=== PATIENT | male | born 1975 | race Two or more races ===

== ENCOUNTER 2017-01-24 12:34 | Emergency (ER) | payer MEDICAID, OTHER ==
[~2017-01-24] VITALS: Ht 182.9 cm; Wt 112.0 kg
[2017-01-24 12:59] LABS: Basophils # (auto) 0 uL; Basophils % (auto) 0.4 % (0.0-2.0); CONDITION Y; Eosinophils # (auto) 0.1 uL; Eosinophils % (auto) 1.3 % (0.0-7.0); Hematocrit 45.5 % (41.0-53.0); Lymphocytes # (auto) 1.6 uL; Lymphocytes % (auto) 24.3 % (10.0-50.0); Mean Corpuscular Hgb Conc. 35.1 g/dL (32.0-36.0); Mean Corpuscular Volume 94.2 fL (80.0-100.0); Mean Platelet Volume 10.3 fL (7.4-10.4); Monocytes # (auto) 0.7 uL; Monocytes % (auto) 9.8 % (0.0-12.0); Neutrophils # (auto) 4.3 uL; Neutrophils % (auto) 64.2 % (37.0-80.0); Platelet Count (auto) 147 10^3/uL (140-450); Red Cell Distribution Width 12.7 % (11.6-16.0); White Blood Cell 6.7 10^3/uL (4.4-10.8)
[2017-01-24 13:25] LABS: Alkaline Phosphatase 99 U/L (45-117); Anion Gap 7 (5-15); Aspartate Aminotransferase 17 U/L (15-37); BUN/Creatinine Ratio 15.7; Bilirubin, Total 0.4 mg/dL (0.2-1.0); Blood Urea Nitrogen 17 mg/dL (7-18); Calcium 8.5 mg/dL (8.5-10.1); Carbon Dioxide 26 mmol/L (21-32); Chloride 105 mmol/L (98-107); GFR African American 96 mL/min; GFR Non-African American 79 mL/min; Glucose 118 mg/dL (74-106); Potassium 3.7 mmol/L (3.5-5.1); Sodium 138 mmol/L (136-145); Total Protein 7.6 g/dL (6.4-8.2)
[2017-01-24] MEDS ORDERED: SODIUM CHLORIDE 0.9% 1,000 ML IV ONE (15:31)
[2017-01-24 17:14] VITALS: BP 128/65
== END 2017-01-24 17:22 | disposition home or self-care (01) ==
LOC: ER 12:39
DX: R53.1 Weakness (principal); R42 Dizziness and giddiness; R55 Syncope and collapse
CPT/HCPCS: 36415; 70450; 80053; 82962; 84484; 85025; 93005; 94761; 96360

== ENCOUNTER 2017-03-29 16:13 | Emergency (ER) | payer MEDICAID ==
[~2017-03-29] VITALS: Ht 182.9 cm; Wt 108.0 kg
[2017-03-29 16:35] VITALS: BP 142/79
== END 2017-03-29 17:46 | disposition home or self-care (01) ==
LOC: ER 16:23
DX: N50.3 Cyst of epididymis (principal); I86.1 Scrotal varices
CPT/HCPCS: 76870; 81002

== ENCOUNTER 2019-12-30 11:14 | Emergency (ER) | payer MEDICAID ==
[~2019-12-30] VITALS: Ht 182.9 cm; Wt 113.4 kg
[2019-12-30 11:15] VITALS: BP 134/80
[2019-12-30 11:46] LABS: Urine Bacteria NONE SEEN /hpf (None Seen); Urine Blood Negative /uL (Negative); Urine Specific Gravity 1.009 (1.001-1.035); Urine WBC 1 /hpf (0 - 3)
== END 2019-12-30 13:21 | disposition home or self-care (01) ==
LOC: ER 11:14
DX: N50.3 Cyst of epididymis (principal)
CPT/HCPCS: 76870; 81001

== ENCOUNTER 2021-02-01 08:53 | Emergency (ER) | payer MEDICAID ==
[~2021-02-01] VITALS: Ht 185.4 cm; Wt 113.4 kg
[2021-02-01 09:32] VITALS: BP 143/88
[2021-02-01 09:39] LABS: Urine Bacteria NONE SEEN /hpf (None Seen); Urine Blood 3+ /uL (Negative); Urine Budding Yeast OCCASIONAL /hpf (None Seen); Urine Mucus FEW (None Seen); Urine Specific Gravity 1.021 (1.001-1.035); Urine WBC 2 /hpf (0 - 3)
[2021-02-01] MEDS ORDERED: KETOROLAC TROMETH 60MG/2ML VIAL IM ONE (10:30)
== END 2021-02-01 11:13 | disposition home or self-care (01) ==
LOC: ER 08:53
DX: N20.2 Calculus of kidney with calculus of ureter (principal)
CPT/HCPCS: 74176; 81001; 96372; 99284; J1885

== ENCOUNTER 2021-08-01 10:32 | Inpatient (IN) | payer MEDICAID ==
[~2021-08-01] VITALS: Ht 182.9 cm; Wt 105.0 kg
[2021-08-01 11:45] LABS: Basophils # (auto) 0 10 ^3/uL (0-0.2); Basophils % (auto) 0.7 % (0.0-2.0); Eosinophils # (auto) 0.1 10 ^3/uL (0-0.8); Eosinophils % (auto) 1.7 % (0.0-7.0); Hematocrit 41.4 % (41.0-53.0); Hemoglobin 13.9 g/dL (13.5-17.5); Lymphocytes # (auto) 0.7 10 ^3/uL (0.4-5.4); Lymphocytes % (auto) 12.8 % (10.0-50.0); Mean Corpuscular Hemoglobin 31.3 pg (28.0-32.0); Mean Corpuscular Hgb Conc. 33.7 g/dL (32.0-36.0); Monocytes # (auto) 0.7 10 ^3/uL (0-1.3); Monocytes % (auto) 12.8 % (0.0-12.0); Neutrophils # (auto) 4.1 10 ^3/uL (1.6-8.6); Nucleated Red Blood Cells % 0.1 %; Red Blood Cells 4.45 10^6/uL (4.5-5.90); White Blood Cell 5.7 10^3/uL (4.4-10.8)
[2021-08-01 11:56] LABS: Albumin 3.1 g/dL (3.4-5.0); Calcium 8.3 mg/dL (8.5-10.1); Potassium 4.3 mmol/L (3.5-5.1)
[2021-08-01 12:02] LABS: BUN/Creatinine Ratio 12.4; Bilirubin, Total 0.5 mg/dL (0.2-1.0); Total Protein 7.4 g/dL (6.4-8.2)
[2021-08-01] MEDS ORDERED: ONDANSETRON HCL 4 MG/2 ML VIAL IV PRN (16:45)
[2021-08-01] MEDS ORDERED: ACETAMINOPHEN 325 MG TAB PO PRN (16:45)
[2021-08-01] MEDS: ALBUTEROL SULF HFA 90MCG INH 200DOSE IN SCH (22:00)
[2021-08-02] MEDS ORDERED: PROMETHAZINE-DM 5 ML ORAL SYRUP PO PRN (00:15)
[2021-08-02 05:04] VITALS: BP 118/77
[2021-08-02 08:30] VITALS: BP 103/61
[2021-08-02 09:42] LABS: Basophils # (auto) 0 10 ^3/uL (0-0.2); Basophils % (auto) 0.7 % (0.0-2.0); Eosinophils # (auto) 0.1 10 ^3/uL (0-0.8); Eosinophils % (auto) 3.1 % (0.0-7.0); Hematocrit 38.1 % (41.0-53.0); Lymphocytes # (auto) 1.1 10 ^3/uL (0.4-5.4); Mean Corpuscular Hemoglobin 31.8 pg (28.0-32.0); Mean Corpuscular Hgb Conc. 34.1 g/dL (32.0-36.0); Mean Corpuscular Volume 93.1 fL (80.0-100.0); Monocytes # (auto) 0.6 10 ^3/uL (0-1.3); Monocytes % (auto) 13.2 % (0.0-12.0); Neutrophils # (auto) 2.8 10 ^3/uL (1.6-8.6); Nucleated Red Blood Cells % 0.1 %; Red Blood Cells 4.09 10^6/uL (4.5-5.90); White Blood Cell 4.7 10^3/uL (4.4-10.8)
[2021-08-02] MEDS: CHOLECALCIFEROL (VITD3) 2,000 UNIT CAP/TAB PO SCH (09:55)
[2021-08-02] MEDS: ZINC SULFATE 220mg CAP or TAB PO SCH (09:55)
[2021-08-02] MEDS: ASCORBIC ACID 500 MG TAB PO SCH ×2 (09:55→21:40)
[2021-08-02] MEDS: DexAMETHasone SOD PHOS 10MG/1ML VIAL INJ IV SCH (09:55)
[2021-08-02 10:06] LABS: Calcium 8.3 mg/dL (8.5-10.1); Potassium 3.9 mmol/L (3.5-5.1)
[2021-08-02 10:23] LABS: BUN/Creatinine Ratio 12.6
[2021-08-02] MEDS ORDERED: REMDESIVIR PER PHARMACY 0 ML IV SCH (13:45)
[2021-08-02] MEDS ORDERED: REMDESIVIR 200 MG in NS 210ml LOADING DOSE ADULT IV ONE (16:00)
[2021-08-02 17:00] VITALS: BP 105/56
[2021-08-02] MEDS: ALBUTEROL SULF HFA 90MCG INH 200DOSE IN SCH (21:05)
[2021-08-02 21:30] VITALS: BP 105/58
[2021-08-03] VITALS (7 sets, daily range): BP systolic 91–122; BP diastolic 54–70
[2021-08-03 06:51] LABS: Basophils # (auto) 0 10 ^3/uL (0-0.2); Basophils % (auto) 0.3 % (0.0-2.0); Eosinophils # (auto) 0 10 ^3/uL (0-0.8); Eosinophils % (auto) 0.4 % (0.0-7.0); Hematocrit 38.3 % (41.0-53.0); Hemoglobin 12.9 g/dL (13.5-17.5); Lymphocytes # (auto) 1.4 10 ^3/uL (0.4-5.4); Mean Corpuscular Hemoglobin 31.6 pg (28.0-32.0); Mean Corpuscular Hgb Conc. 33.6 g/dL (32.0-36.0); Mean Corpuscular Volume 93.8 fL (80.0-100.0); Monocytes # (auto) 0.8 10 ^3/uL (0-1.3); Monocytes % (auto) 10.6 % (0.0-12.0); Neutrophils # (auto) 5.2 10 ^3/uL (1.6-8.6); Neutrophils % (auto) 69.7 % (37.0-80.0); Red Blood Cells 4.08 10^6/uL (4.5-5.90); Red Cell Distribution Width 13.1 % (11.8-14.3); White Blood Cell 7.5 10^3/uL (4.4-10.8)
[2021-08-03 07:22] LABS: Calcium 8.6 mg/dL (8.5-10.1); Potassium 3.5 mmol/L (3.5-5.1)
[2021-08-03 07:23] LABS: BUN/Creatinine Ratio 18.2
[2021-08-03] MEDS ORDERED: AZITHROMYCIN 500MG/ 250ML 250 ML IV SCH (10:00)
[2021-08-03] MEDS: ZINC SULFATE 220mg CAP or TAB PO SCH (10:28)
[2021-08-03] MEDS: DexAMETHasone SOD PHOS 10MG/1ML VIAL INJ IV SCH (10:28)
[2021-08-03] MEDS: ASCORBIC ACID 500 MG TAB PO SCH ×2 (10:28→21:27)
[2021-08-03] MEDS: CHOLECALCIFEROL (VITD3) 2,000 UNIT CAP/TAB PO SCH (10:29)
[2021-08-03] MEDS: cefTRIAXone 1GM/50ML D5W 50 ML IV SCH (11:24)
[2021-08-03] MEDS: REMDESIVIR 100mg 100 MG in SODIUM CHL 0.9% 230 ML IV SCH (17:25)
[2021-08-03] MEDS: DOXYCYCLINE 100MG/250ML 250 ML IV SCH (18:19)
[2021-08-04] VITALS (7 sets, daily range): BP systolic 95–114; BP diastolic 51–70
[2021-08-04 06:07] LABS: Basophils # (auto) 0 10 ^3/uL (0-0.2); Basophils % (auto) 0.6 % (0.0-2.0); Eosinophils # (auto) 0.1 10 ^3/uL (0-0.8); Eosinophils % (auto) 1.1 % (0.0-7.0); Hematocrit 37.8 % (41.0-53.0); Hemoglobin 12.5 g/dL (13.5-17.5); Lymphocytes # (auto) 1.6 10 ^3/uL (0.4-5.4); Lymphocytes % (auto) 22.6 % (10.0-50.0); Mean Corpuscular Hemoglobin 31.2 pg (28.0-32.0); Mean Corpuscular Hgb Conc. 33.2 g/dL (32.0-36.0); Mean Corpuscular Volume 94.1 fL (80.0-100.0); Monocytes # (auto) 0.9 10 ^3/uL (0-1.3); Monocytes % (auto) 12.1 % (0.0-12.0); Neutrophils # (auto) 4.5 10 ^3/uL (1.6-8.6); Neutrophils % (auto) 63.6 % (37.0-80.0); Nucleated Red Blood Cells % 0.2 %; Red Blood Cells 4.02 10^6/uL (4.5-5.90); Red Cell Distribution Width 13.5 % (11.8-14.3); White Blood Cell 7.1 10^3/uL (4.4-10.8)
[2021-08-04] MEDS: DOXYCYCLINE 100MG/250ML 250 ML IV SCH ×2 (06:19→17:37)
[2021-08-04 08:38] LABS: Calcium 8.5 mg/dL (8.5-10.1); Potassium 3.6 mmol/L (3.5-5.1)
[2021-08-04 08:42] LABS: BUN/Creatinine Ratio 14.6; Bilirubin, Total 0.4 mg/dL (0.2-1.0); Total Protein 6.6 g/dL (6.4-8.2)
[2021-08-04] MEDS: CHOLECALCIFEROL (VITD3) 2,000 UNIT CAP/TAB PO SCH (09:27)
[2021-08-04] MEDS: ASCORBIC ACID 500 MG TAB PO SCH ×2 (09:27→22:21)
[2021-08-04] MEDS: DexAMETHasone SOD PHOS 10MG/1ML VIAL INJ IV SCH (09:27)
[2021-08-04] MEDS: cefTRIAXone 1GM/50ML D5W 50 ML IV SCH (09:27)
[2021-08-04] MEDS: ZINC SULFATE 220mg CAP or TAB PO SCH (09:27)
[2021-08-04] MEDS ORDERED: IOHEXOL 350 MG/ML 100ML IJ ONE (12:09)
[2021-08-04] MEDS: APIXABAN 5 MG TAB PO SCH ×2 (13:30→22:21)
[2021-08-04] MEDS: REMDESIVIR 100mg 100 MG in SODIUM CHL 0.9% 230 ML IV SCH (14:11)
[2021-08-04] MEDS: ALBUTEROL SULF HFA 90MCG INH 200DOSE IN PRN (16:34)
[2021-08-04] MEDS ORDERED: APIX5TAB PO (17:51)
[2021-08-04] MEDS ORDERED: DEXA6TAB6 PO (17:51)
[2021-08-04] MEDS ORDERED: ASCO500T11 PO (17:51)
[2021-08-04] MEDS ORDERED: ZINC220C8 PO (17:51)
[2021-08-04] MEDS ORDERED: CHOL1CAP47 PO (17:51)
[2021-08-04] MEDS ORDERED: ALBUAER3 IN (17:51)
[2021-08-05 05:02] VITALS: BP 102/57
[2021-08-05] MEDS: DOXYCYCLINE 100MG/250ML 250 ML IV SCH ×2 (07:02→18:15)
[2021-08-05 08:00] VITALS: BP 117/72
[2021-08-05 08:00] LABS: Potassium 3.9 mmol/L (3.5-5.1)
[2021-08-05 08:07] LABS: Albumin 3.1 g/dL (3.4-5.0); Calcium 8.5 mg/dL (8.5-10.1)
[2021-08-05] MEDS: ALBUTEROL SULF HFA 90MCG INH 200DOSE IN PRN ×2 (08:25→21:11)
[2021-08-05 08:32] LABS: BUN/Creatinine Ratio 15.3; Bilirubin, Total 0.4 mg/dL (0.2-1.0); Total Protein 6.5 g/dL (6.4-8.2)
[2021-08-05 09:00] VITALS: BP 102/57
[2021-08-05] MEDS: cefTRIAXone 1GM/50ML D5W 50 ML IV SCH (09:59)
[2021-08-05] MEDS: DexAMETHasone SOD PHOS 10MG/1ML VIAL INJ IV SCH (10:00)
[2021-08-05] MEDS: ASCORBIC ACID 500 MG TAB PO SCH ×2 (10:01→21:57)
[2021-08-05] MEDS: ZINC SULFATE 220mg CAP or TAB PO SCH (10:01)
[2021-08-05] MEDS: APIXABAN 5 MG TAB PO SCH ×2 (10:02→21:56)
[2021-08-05] MEDS: CHOLECALCIFEROL (VITD3) 2,000 UNIT CAP/TAB PO SCH (10:02)
[2021-08-05 12:39] VITALS: BP 97/56
[2021-08-05] MEDS: REMDESIVIR 100mg 100 MG in SODIUM CHL 0.9% 230 ML IV SCH (15:36)
[2021-08-05 17:00] VITALS: BP 117/72
[2021-08-05 22:00] VITALS: BP 122/76
[2021-08-06 05:00] VITALS: BP 107/69
[2021-08-06] MEDS: DOXYCYCLINE 100MG/250ML 250 ML IV SCH (06:40)
[2021-08-06 08:07] LABS: Potassium 3.8 mmol/L (3.5-5.1)
[2021-08-06 08:15] LABS: Albumin 3.1 g/dL (3.4-5.0); BUN/Creatinine Ratio 18.9; Bilirubin, Total 0.3 mg/dL (0.2-1.0); Calcium 8.7 mg/dL (8.5-10.1); Total Protein 6.6 g/dL (6.4-8.2)
[2021-08-06 09:00] VITALS: BP 106/65
[2021-08-06] MEDS: cefTRIAXone 1GM/50ML D5W 50 ML IV SCH (09:20)
[2021-08-06] MEDS: ZINC SULFATE 220mg CAP or TAB PO SCH (09:22)
[2021-08-06] MEDS: CHOLECALCIFEROL (VITD3) 2,000 UNIT CAP/TAB PO SCH (09:22)
[2021-08-06] MEDS: ASCORBIC ACID 500 MG TAB PO SCH (09:22)
[2021-08-06] MEDS: APIXABAN 5 MG TAB PO SCH (09:22)
[2021-08-06] MEDS: DexAMETHasone SOD PHOS 10MG/1ML VIAL INJ IV SCH (09:22)
[2021-08-06] MEDS: ALBUTEROL SULF HFA 90MCG INH 200DOSE IN PRN (09:48)
[2021-08-06 13:00] VITALS: BP 103/57
[2021-08-11] MEDS ORDERED: APIXABAN 5 MG TAB PO SCH (10:00)
== END 2021-08-06 14:45 | disposition home health service (06) | DRG 137 ==
LOC: ER 10:32 → TELE 16:32 → TELE-WESTW 08-02 04:21
PROVIDERS: ADMIT Internal Medicine; ATTEND Internal Medicine
PROC: XW033E5 Introduction of Remdesivir Anti-infective into Peripheral Vein, Percutaneous Approach, New Technology Group 5 (ICD-10-PCS; principal; 2021-08-02)
DX: U07.1 COVID-19 (principal); I26.99 Other pulmonary embolism without acute cor pulmonale; J96.01 Acute respiratory failure with hypoxia; J12.82 Pneumonia due to coronavirus disease 2019; E66.01 Morbid (severe) obesity due to excess calories; F41.9 Anxiety disorder, unspecified; J98.11 Atelectasis; Z68.31 Body mass index [BMI] 31.0-31.9, adult; Z83.3 Family history of diabetes mellitus; Z79.01 Long term (current) use of anticoagulants; Z80.0 Family history of malignant neoplasm of digestive organs; Z82.5 Family history of asthma and other chronic lower respiratory diseases
CPT/HCPCS: 36415; 36600; 71045; 71275; 80048; 80053; 82805; 83880; 84484; 85025; 85379; 86141; 87426; 93970; 94640; 99291; G0378; J0696; J1100; J3490

== ENCOUNTER 2024-07-21 10:18 | Inpatient (IN) | payer MEDICAID ==
[~2024-07-21] VITALS: Ht 182.9 cm; Wt 97.7 kg
[2024-07-21] VITALS (8 sets, daily range): BP systolic 109–124; BP diastolic 67–83; PULSE 90–107; RESP 18–20; TEMP 97.9–98.5; O2SAT 93–98
[~2024-07-21 10:18] MED LIST: ALBUAER3 IN; APIX5TAB PO; ASCO500T11 PO; CHOL1CAP47 PO; DEXA6TAB6 PO; ZINC220C8 PO
--- NOTE | 2024-07-21 10:28 | ED.PDOC ---
SOB-HPI HPI Comments 49 y/o M brought in by ambulance presents to the ED with CC of cough. Per EMS, patient has been experiencing episodes of hemoptysis x2days; with associated symptoms of weakness and dizziness. Patient states, that he was seen at urgent care one week ago for flu-like symptoms where he received albuterol and antibiotics. Patient relays, that medications did help in the beginning; now symptoms have worsened. Patient was stating at 91% room air; received a breathing treatment in route to ED stating at 96%. Patient denies any social history. Patient denies chest pain, fever, shortness of breath, or N/V/D. Time Seen by MD: 10:20 Primary Care Provider: ALIDA Dudley notes: Nurses Notes, Editorial Director Notes, Medications, Allergies Information Source: Patient, Emergency Med Personnel Mode of Arrival: EMS Severity: Moderate Timing: Days Duration: Since onset Context: At Rest PE Risk Factors: Other (COVID) History of: None Prehospital treatment: Breathing Tx Modifying Factors: Nothing Associated Signs and Symptoms: None If cough with SOB: Bloody Past Medical History PAST MEDICAL HISTORY: Anxiety, PE Surgical History: Denies all surgeries Family History Family History: Reviewed,noncontributory to illness Social History Smoker: Non-Smoker Alcohol: Rarely Drugs: Denies Drug Use Lives In: Home Constitutional: denies: chills, diaphoresis, fatigue, fever, malaise, sweats, weakness, others EENTM: denies: blurred vision, double vision, ear bleeding, ear discharge, ear drainage, ear pain, ear ringing, eye pain, eye redness, hearing loss, mouth pain, mouth swelling, nasal discharge, nose bleeding, nose congestion, nose pain, photophobia, tearing, throat pain, throat swelling, voice changes, others Respiratory: reports: cough; denies: hemoptysis, orthopnea, SOB at rest, shortness of breath, SOB with excertion, stridor, wheezing, others Cardiovascular: denies: chest pain, dizzy spells, diaphoresis, Dyspnea on exertion, edema, irregular heart beat, left arm pain, lightheadedness, palpitations, PND, syncope, others Gastrointestinal: denies: abdomen distended, abdominal pain, blood streaked bowels, constipated, diarrhea, dysphagia, difficulty swallowing, hematemesis, melena, nausea, poor appetite, poor fluid intake, rectal bleeding, rectal pain, vomiting, others Genitourinary: denies: burning, dysuria, flank pain, frequency, hematuria, incontinence, penile discharge, penile sore, pain, testicle pain, testicle swelling, urgency, others Neurological: reports: dizziness; denies: fainting, headache, left sided numbness, left sided weakness, numbness, paresthesia, pre-existing deficit, right sided numbness, right sided weakness, seizure, speech problems, tingling, tremors, weakness, others Musculoskeletal: denies: back pain, gout, joint pain, joint swelling, muscle pain, muscle stiffness, neck pain, others Integumetry: denies: bruises, change in color, change in hair/nails, dryness, laceration, lesions, lumps, rash, wounds, others Allergic/Immunocompromised: denies: Difficulty Healing, Frequent Infections, Hives, Itching, others Hematologic/Lymphatic: denies: anemia, blood clots, easy bleeding, easy br uising, swollen glands, others Endocrine: denies: excessive hunger, excessive sweating, excessive thirst, excessive urination, flushing, intolerance to cold, intolerance to heat, unexplained weight gain, unexplained weight loss, others Psychiatric: denies: anxiety, bipolar disorder, depression, hopeless, panic disorder, schizophrenia, sleepless, suicidal, others All Other Systems: Reviewed and Negative Physical Exam General Appearance: Moderate Distress HEENT: Normal ENT Inspection, Pharynx Normal, TMs Normal Neck: Full Range of Motion, Non-Tender, Normal, Normal Inspection Respiratory: Chest Non-Tender, No Accessory Muscle Use, Respiratory Distress, Wheezing Cardiovascular: No Edema, No JVD, No Murmur, No Gallop, Tachycardia Breast Exam: Deferred Gastrointestinal: No Organomegaly, Non Tender, No Pulsatile Mass, Normal Bowel Sounds, Soft Genitalia: Deferred Pelvic: Deferred Rectal: Deferred Extremities: No calf tenderness, Normal capillary refill, Normal inspection, Normal range of motion, Non-tender, No pedal edema Musculoskeletal : Apperance: Normal Neurologic: Alert, senior materials planner II-XII nml as Tested, No Motor Deficits, Normal Affect, Normal Mood, No Sensory Deficits Cerebellar Function: Normal Reflexes: Normal Skin: Dry, Normal Color, Warm Lymphatic: No Adenopathy EKG EKG : Pulse Rate (adult): 106 [place]: Normal Cardiac Rhythm: ST Block: None Hypertrophy: None ST: Normal Was a procedure done? Was a procedure done?: No Differential Dx Differential Diagnosis: Bronchitis, COPD, Pneumonia, Pharyngitis, URI X-Ray, Labs, Meds, VS Vital Signs Date Time Temp Pulse Resp B/P (MAP) Pulse Ox O2 Delivery O2 Flow Rate FiO2 07/21/24 10:45 98.8 103 19 121/77 (92) 95 98.8 07/21/24 10:45 103 19 95 Nasal Cannula* 2 28 07/21/24 10:44 96 Nasal Cannula* 2 28 07/21/24 10:28 106 07/21/24 10:22 106 07/21/24 10:18 Nasal Cannula* 2 28 07/21/24 10:18 Nasal Cannula* 2 28 07/21/24 10:18 98.7 102 20 147/79 (101) 94 Lab Test 07/21/24 11:48 07/21/24 10:55 07/21/24 10:47 07/21/24 10:44 Range/Units Troponin I High Sensitivity 3 L 3 L </=54 ng/L Urine Color Light-yellow Yellow Urine Clarity Clear Clear Urine pH 6.0 5.0-9.0 Urine Specific [place] 1.010 1.001-1.035 Urine Protein Negative Negative Urine Ketones Negative Negative Urine Blood Negative Negative /uL Urine Nitrite Negative Negative Urine Bilirubin Negative Negative Urine Urobilinogen Normal Negative mg/dL Urine Leukocyte Esterase Negative Negative /uL Urine RBC <1 0 - 3 /hpf Urine Microscopic WBC 1 0-3 /HPF Urine Squamous Epithelial Cells None seen <5 /hpf Urine Bacteria None seen None Seen /hpf Urine Glucose Normal Normal mg/dL White Blood Count 9.5 4.4-10.8 10^3/uL Red Blood Count 4.81 4.5-5.90 10^6/uL Hemoglobin 15.5 13.5-17.5 g/dL Hematocrit 45.6 41.0-53.0 % Mean Corpuscular Volume 94.9 80.0-100.0 fL Mean Corpuscular Hemoglobin 32.3 H 28.0-32.0 pg Mean Corpuscular Hemoglobin Concent 34.0 32.0-36.0 g/dL Red Cell Distribution Width 13.5 11.8-14.3 % Platelet Count 158 140-450 10^3/uL Mean Platelet Volume 9.6 6.9-10.8 fL Neutrophils (%) (Auto) 68.5 37.0-80.0 % Lymphocytes (%) (Auto) 11.8 10.0-50.0 % Monocytes (%) (Auto) 14.0 H 0.0-12.0 % Eosinophils (%) (Auto) 4.9 0.0-7.0 % Basophils (%) (Auto) 0.8 0.0-2.0 % Neutrophils # (Auto) 6.5 1.6-8.6 10 ^3/uL Lymphocytes # (Auto) 1.1 0.4-5.4 10 ^3/uL Monocytes # (Auto) 1.3 0-1.3 10 ^3/uL Eosinophils # (Auto) 0.5 0-0.8 10 ^3/uL Basophils # (Auto) 0.1 0-0.2 10 ^3/uL Nucleated Red Blood Cells 0.1 % D-Dimer, Quantitative 0.44 0.0-0.49 mg/L FEU Sodium Level 139 136-145 mmol/L Potassium Level 4.0 3.5-5.1 mmol/L Chloride Level 105 98-107 mmol/L Carbon Dioxide Level 26 20-31 mmol/L Anion Gap 8 5-15 Blood Urea Nitrogen 12 9-23 mg/dL Creatinine 0.98 0.700-1.30 mg/dL Glomerular Filtration Rate Calc 93 >90 mL/min BUN/Creatinine Ratio 12.2 10.0-20.0 Serum Glucose 100 74-106 mg/dL Lactic Acid Level 1.3 0.4-2.0 mmol/L Calcium Level 9.0 8.7-10.4 mg/dL B-Type Natriuretic Peptide 3.45 0-100 pg/mL Influenza Type A Antigen Negative Negative Influenza Type B Antigen Negative Negative SARS-CoV-2 Antigen (Rapid) Negative NEGATIVE Current Medications Medications (Trade) Dose Ordered Sig/Deuce Route Start Time Stop Time Status Last Admin Methylprednisolone Sodium Succinate (Solu Medrol) 125 mg ONCE ONCE IV 07/21/24 10:30 07/21/24 10:31 DC 07/21/24 10:39 Ipratropium [place] (Atrovent Medneb) 1 mg ONCE ONCE HHN 07/21/24 10:30 07/21/24 10:31 DC 07/21/24 10:43 Albuterol (Ventolin Medneb) 10 mg ONCE ONCE HHN 07/21/24 10:30 07/21/24 10:31 DC 07/21/24 10:43 CXR: FINDINGS: Lines and Tubes: None Lungs: No focal consolidation. Pleura: No effusion. No pneumothorax. Cardiomediastinal contours: Unremarkable Bones: No acute osseous abnormality. IMPRESSION: No acute cardiopulmonary disease. ATED BY: KHUSHI DIAZ MD DICTATED DATE/TIME: 07/21/241213 SIGNED BY: KHUSHI DIAZ MD SIGNED DATE/TIME: 07/21/241213 CC: At this time, the patient was given a breathing treatment of albuterol and Atrovent. The patient was also given Solu-Medrol 125 mg IV push The CBC and chemistry panel are within normal limits. The influenza a and influenza B are negative The COVID test is negative The urine test is also negative The troponin level x2 is negative The patient was being admitted to the hospitalist. The patient consistently is having shortness for breath and wheezing. We will continue to monitor the patient's condition Images Reviewed?: Images reviewed and evaluated by me Time of 1ST Reevaluation: 10:50 Reevaluation 1ST: Unchanged Patient Education/Counseling: Diagnosis, Treatment, Prognosis Family Education/Counseling: No Family Present Departure 1 Departure Time of Disposition: 13:57 Impression: Primary Impression: Hemoptysis Additional Impression: Acute respiratory failure Qualified Codes: J96.00 - Acute respiratory failure, unspecified whether with hypoxia or hypercapnia Disposition: ADMITTED INPATIENT Admit to: [facility] Condition: Fair Critical Care Note Critical Care Time?: Yes (45 min-critical care time only) Stability Stability form required: Yes Unstable for transfer: Telemetry monitoring (Telemetry monitoring required), ED Physician Assesment (Clinical assesment) Heart Score Heart Score: Heart Score Response (Comments) Value History N/A 0 EKG N/A 0 Age N/A 0 Risk Factors N/A 0 Troponin N/A 0 Total 0 I personally scribed for ANGELINA LAYNE MD ([email or web address]) on 07/21/24 at 10:28. Electronically submitted by Michelle Cohen ([email or web address]). I personally scribed for ANGELINA LAYNE MD ([email or web address]) on 07/21/24 at 12:26. Electronically submitted by Michelle Cohen ([email or web address]). ANGELINA LAYNE MD Jul 21, 2024 10:28
[2024-07-21] MEDS: methylPREDNISolone SOD SUCC 125 MG/2 ML VL IV ONE (10:39)
[2024-07-21] MEDS: ALBUTEROL SULF 2.5 MG/0.5ML(0.5%) NEB SOLN HHN ONE (10:43)
[2024-07-21] MEDS: IPRATROPIUM BROM 0.5 MG/2.5ML INH SOL HHN ONE (10:43)
[2024-07-21 11:19] LABS: Basophils # (auto) 0.1 10 ^3/uL (0-0.2); Basophils % (auto) 0.8 % (0.0-2.0); Eosinophils # (auto) 0.5 10 ^3/uL (0-0.8); Eosinophils % (auto) 4.9 % (0.0-7.0); Hematocrit 45.6 % (41.0-53.0); Hemoglobin 15.5 g/dL (13.5-17.5); Lymphocytes # (auto) 1.1 10 ^3/uL (0.4-5.4); Lymphocytes % (auto) 11.8 % (10.0-50.0); Mean Corpuscular Hemoglobin 32.3 pg (28.0-32.0); Mean Corpuscular Volume 94.9 fL (80.0-100.0); Monocytes # (auto) 1.3 10 ^3/uL (0-1.3); Neutrophils # (auto) 6.5 10 ^3/uL (1.6-8.6); Neutrophils % (auto) 68.5 % (37.0-80.0); Nucleated Red Blood Cells % 0.1 %; Platelet Count (auto) 158 10^3/uL (140-450); Red Blood Cells 4.81 10^6/uL (4.5-5.90); Red Cell Distribution Width 13.5 % (11.8-14.3); White Blood Cell 9.5 10^3/uL (4.4-10.8)
[2024-07-21 11:24] LABS: Chloride 105 mmol/L (98-107); Sodium 139 mmol/L (136-145)
[2024-07-21 11:25] LABS: Anion Gap 8 (5-15); Carbon Dioxide 26 mmol/L (20-31)
[2024-07-21 11:30] LABS: BUN/Creatinine Ratio 12.2 (10.0-20.0); Blood Urea Nitrogen 12 mg/dL (9-23); Glucose 100 mg/dL (74-106)
[2024-07-21 11:39] LABS: COVID19 ANTIGEN SOFIA FIA NEGATIVE (NEGATIVE)
[2024-07-21 11:40] LABS: Rapid Influenza A Negative (Negative); Rapid Influenza B Negative (Negative)
--- NOTE | 2024-07-21 12:14 | DVH ---
EXAM: XY CHEST PORTABLE Indication: sob Technique: Single frontal view of the chest was obtained Comparison: CHEST PORTABLE on DOS: 08/01/21 FINDINGS: Lines and Tubes: None Lungs: No focal consolidation. Pleura: No effusion. No pneumothorax. Cardiomediastinal contours: Unremarkable Bones: No acute osseous abnormality. IMPRESSION: No acute cardiopulmonary disease.
[2024-07-21 12:18] LABS: Urine Bacteria None Seen /hpf (None Seen)
[2024-07-21 12:31] LABS: Urine Blood Negative /uL (Negative); Urine Clarity Clear (Clear); Urine Color Light-Yellow (Yellow); Urine Protein, UAD Negative (Negative); Urine Squamous Epithelial Cell None Seen /hpf (<5); Urine Urobilinogen Normal (Negative); Urine WBC 1 /HPF (0-3)
[2024-07-21] MEDS ORDERED: ACETAMINOPHEN 325 MG TAB PO PRN (17:00)
[2024-07-21] MEDS ORDERED: HYDROcodone-ACET 5/325MG TAB PO PRN (17:00)
[2024-07-21] MEDS ORDERED: IPRATROPIUM BROM 0.5 MG/2.5ML INH SOL NEB PRN (17:00)
[2024-07-21] MEDS ORDERED: ONDANSETRON HCL 4 MG/2 ML VIAL IV PRN (17:00)
[2024-07-21] MEDS ORDERED: ALBUTEROL SULF 2.5 MG/0.5ML(0.5%) NEB SOLN NEB PRN (17:00)
--- NOTE | 2024-07-21 17:10 | DVHHP2 ---
History of Present Illness Reason for Visit: Cough, hemoptysis, weakness, and dizziness History of Present Illness Kumar Breaux is a 49-year-old male with past medical history of anxiety, PE, and COVID who presents to the ED with cough, weakness, dizziness, and hemoptysis x2 days. Patient reports that he had the flu about a month ago and still has a lingering cough. He states that he went to the urgent care recently was given oral antibiotics and steroids with no relief. Patient is unsure what allergies he has. He does have a cat and dog at home. Patient denies any chest pain, shortness of breath, abdominal pain, nausea, vomiting, diarrhea, fever, chills, and headache. Pulmonary: Other (Covid), Pulmonary embolus Psych: Anxiety Past Surgical History: None Family History: Cancer, DM, Other (Brother with asthma, mom with diabetes, grandma with stomach cancer) Smoke: No ALCOHOL: none (Quit drinking) Drugs: Other (Quit marijuana) Lives: with Family Domestic Violence: Neg Review of Systems Constitutional: Yes: Weakness, Other (Dizziness); No: Fever, Chills, Sweats, Malaise Eyes: No: Pain, Vision change, Conjunctivae inflammation, Eyelid inflammation, Other, Redness ENT: No: Ear pain, Ear discharge, Nose pain, Nose discharge, Nose congestion, Mouth pain, Mouth swelling, Throat pain, Throat swelling, Other Respiratory: Cough, Hemoptysis; No: Dry, Shortness of breath, SOB with excertion, Wheezing, Pleuritic Pain, Sputum, Wheezing, Other Cardiovascular: No: Chest Pain, Palpitations, Orthopnea, Paroxysmal Noc. Dyspnea, Edema, Lt Headedness, Other Gastrointestinal: No: Nausea, Vomiting, Abdominal Pain, Diarrhea, Constipation, Melena, Hematochezia, Other Genitourinary: No Dysuria, No Frequency, No Incontinence, No Hematuria, No Retention, No Other Musculoskeletal: No: other, neck pain, shoulder pain, arm pain, back pain, hand pain, leg pain, foot pain Skin: No: Rash, Lesions, Jaundice, Bruising, Other Neurological: No: Weakness, Numbness, Incoordination, Change in speech, Confusi on, Seizures, Other Allergies: Coded Allergies: Remdesivir (Verified Allergy, Mild, 07/21/24) rash Exam Vital Signs Vital Signs Date Time Temp Pulse Resp B/P (MAP) Pulse Ox O2 Delivery O2 Flow Rate FiO2 07/21/24 16:08 98.5 93 18 124/83 (97) 95 98.5 07/21/24 10:45 Nasal Cannula* 2 28 General Appearance: Alert, Oriented X3, Cooperative, mild distress HEENT: Atraumatic, PERRLA, EOMI, Mucous membr. moist/pink Respiratory: Normal air movement Cardiovascular: Normal S1, Normal S2, No murmurs Abdominal: Normal bowel sounds, Soft, No tenderness, No hepatospenomegaly, No masses Extremities: No clubbing, No cyanosis, No edema, Normal pulses, No tenderne ss/swelling Skin: No rashes, No breakdown, No significant lesion Neuro: Normal gait, Normal speech, Strength at 5/5 X4 ext, Normal tone, Sensation intact Psych/Mental Status: Mental status NL, Mood NL Labs/Xrays Labs Test 07/21/24 11:48 07/21/24 10:55 07/21/24 10:47 07/21/24 10:44 Range/Units Troponin I High Sensitivity 3 L </=54 ng/L Urine Color Light-yellow Yellow Urine Clarity Clear Clear Urine pH 6.0 5.0-9.0 Urine Specific [place] 1.010 1.001-1.035 Urine Protein Negative Negative Urine Ketones Negative Negative Urine Blood Negative Negative /uL Urine Nitrite Negative Negative Urine Bilirubin Negative Negative Urine Urobilinogen Normal Negative mg/dL Urine Leukocyte Esterase Negative Negative /uL Urine RBC <1 0 - 3 /hpf Urine Microscopic WBC 1 0-3 /HPF Urine Squamous Epithelial Cells None seen <5 /hpf Urine Bacteria None seen None Seen /hpf Urine Glucose Normal Normal mg/dL White Blood Count 9.5 4.4-10.8 10^3/uL Red Blood Count 4.81 4.5-5.90 10^6/uL Hemoglobin 15.5 13.5-17.5 g/dL Hematocrit 45.6 41.0-53.0 % Mean Corpuscular Volume 94.9 80.0-100.0 fL Mean Corpuscular Hemoglobin 32.3 H 28.0-32.0 pg Mean Corpuscular Hemoglobin Concent 34.0 32.0-36.0 g/dL Red Cell Distribution Width 13.5 11.8-14.3 % Platelet Count 158 140-450 10^3/uL Mean Platelet Volume 9.6 6.9-10.8 fL Neutrophils (%) (Auto) 68.5 37.0-80.0 % Lymphocytes (%) (Auto) 11.8 10.0-50.0 % Monocytes (%) (Auto) 14.0 H 0.0-12.0 % Eosinophils (%) (Auto) 4.9 0.0-7.0 % Basophils (%) (Auto) 0.8 0.0-2.0 % Neutrophils # (Auto) 6.5 1.6-8.6 10 ^3/uL Lymphocytes # (Auto) 1.1 0.4-5.4 10 ^3/uL Monocytes # (Auto) 1.3 0-1.3 10 ^3/uL Eosinophils # (Auto) 0.5 0-0.8 10 ^3/uL Basophils # (Auto) 0.1 0-0.2 10 ^3/uL Nucleated Red Blood Cells 0.1 % D-Dimer, Quantitative 0.44 0.0-0.49 mg/L FEU Sodium Level 139 136-145 mmol/L Potassium Level 4.0 3.5-5.1 mmol/L Chloride Level 105 98-107 mmol/L Carbon Dioxide Level 26 20-31 mmol/L Anion Gap 8 5-15 Blood Urea Nitrogen 12 9-23 mg/dL Creatinine 0.98 0.700-1.30 mg/dL Glomerular Filtration Rate Calc 93 >90 mL/min BUN/Creatinine Ratio 12.2 10.0-20.0 Serum Glucose 100 74-106 mg/dL Lactic Acid Level 1.3 0.4-2.0 mmol/L Calcium Level 9.0 8.7-10.4 mg/dL B-Type Natriuretic Peptide 3.45 0-100 pg/mL Influenza Type A Antigen Negative Negative Influenza Type B Antigen Negative Negative SARS-CoV-2 Antigen (Rapid) Negative NEGATIVE EXAM: XY CHEST PORTABLE Indication: sob Technique: Single frontal view of the chest was obtained Comparison: CHEST PORTABLE on DOS: 08/01/21 FINDINGS: Lines and Tubes: None Lungs: No focal consolidation. Pleura: No effusion. No pneumothorax. Cardiomediastinal contours: Unremarkable Bones: No acute osseous abnormality. IMPRESSION: No acute cardiopulmonary disease. Assessment/Plan Assessment/Plan Assessment/Plan: Hemoptysis Flu negative COVID Respiratory treatments IV steroids EKG Troponin negative x2 Lactic Blood cultures Chest x-ray negative UA negative BNP D-dimer IV antibiotics ceftriaxone plus azithromycin Labs A.m. labs Chronic anxiety Follow up outpatient History of PE Lovenox FEN/PPX Diet Hep-Lock DVT ppx - Lovenox PUD prophylaxis -famotidine given with steroid Discussed plan of care with patient and nurse Home medications reconciled Admit to med surge Plan discussed with: Patient My Orders Orders - GRAY WOOD Procedure Category Date Status Time Albuterol Medneb PHA 07/21/24 Verified (Ventolin Medneb) 18:00 Albuterol Medneb PHA 07/21/24 Verified (Ventolin Medneb) 17:00 Ipratropium Medneb PHA 07/21/24 Verified (Atrovent Medneb) 18:00 Ipratropium Medneb PHA 07/21/24 Verified (Atrovent Medneb) 17:00 Methylprednisolone PHA 07/21/24 Verified Sod Succ (Solu Medrol 22:00 Famotidine Injection PHA 07/22/24 Verified (Pepcid Injection) 10:00 Date of Service: Jul 21, 2024 Billing Provider: GRAY WOOD Common Visit Codes: [id number] INP/OBS CARE (HIGH) GRAY WOOD Jul 21, 2024 17:09
[2024-07-21] MEDS ORDERED: diphenhdrAMINE HCL 50 MG/1 ML VL IV PRN (17:15)
[2024-07-21] MEDS: IPRATROPIUM BROM 0.5 MG/2.5ML INH SOL NEB SCH (18:50)
[2024-07-21] MEDS: ALBUTEROL SULF 2.5 MG/0.5ML(0.5%) NEB SOLN NEB SCH (18:50)
[2024-07-21] MEDS: cefTRIAXone 1GM/50ML D5W 50 ML IV ONE (18:54)
[2024-07-21] MEDS: AZITHROMYCIN 500MG/ 250ML 250 ML IV ONE (18:54)
[2024-07-21] MEDS: methylPREDNISolone SOD SUCC 40 MG/ML VL IV SCH (21:24)
[2024-07-22] VITALS (11 sets, daily range): BP systolic 102–146; BP diastolic 58–82; PULSE 82–110; RESP 16–22; TEMP 97.8–98.1; O2SAT 91–99
[2024-07-22 06:21] LABS: Basophils # (auto) 0 10 ^3/uL (0-0.2); Basophils % (auto) 0.1 % (0.0-2.0); Eosinophils # (auto) 0 10 ^3/uL (0-0.8); Hematocrit 43.7 % (41.0-53.0); Lymphocytes # (auto) 0.6 10 ^3/uL (0.4-5.4); Mean Corpuscular Hemoglobin 32.3 pg (28.0-32.0); Mean Corpuscular Hgb Conc. 34.3 g/dL (32.0-36.0); Monocytes # (auto) 0.5 10 ^3/uL (0-1.3); Monocytes % (auto) 5.2 % (0.0-12.0); Neutrophils # (auto) 8.9 10 ^3/uL (1.6-8.6); Neutrophils % (auto) 88.7 % (37.0-80.0); Platelet Count (auto) 170 10^3/uL (140-450); Red Blood Cells 4.65 10^6/uL (4.5-5.90); Red Cell Distribution Width 13.4 % (11.8-14.3)
[2024-07-22 06:36] LABS: Alanine Aminotransferase 33 U/L (7-40); Albumin 4.2 g/dL (3.2-4.8); Alkaline Phosphatase 89 U/L (46-116); Anion Gap 5 (5-15); Aspartate Aminotransferase 25 U/L (13-40); BUN/Creatinine Ratio 13.6 (10.0-20.0); Blood Urea Nitrogen 14 mg/dL (9-23); Calcium 9.4 mg/dL (8.7-10.4); Carbon Dioxide 28 mmol/L (20-31); Chloride 105 mmol/L (98-107); Potassium 4.3 mmol/L (3.5-5.1); Sodium 138 mmol/L (136-145)
[2024-07-22 06:37] LABS: Bilirubin, Total 0.4 mg/dL (0.2-1.0)
[2024-07-22 06:42] LABS: Glucose 132 mg/dL (74-106)
--- NOTE | 2024-07-22 08:54 | ECG ---
[facility] Test Date: 2024-07-21 Test Time: 10:22:08 Pat Name: MAXIME JACKSON Department: ER Room: 0214 Gender: M Electrician Research: TJ : 1975 Requested By: ANGELINA LAYNE Order Number: [id number] Reading MD: Christ Li Measurements Intervals [place] Rate: 106 P: 54 OR: 140 QRS: 36 QRSD: 92 T: 30 QT: 347 QTc: 461 Interpretive Statements Sinus tachycardia Artifact in lead(s) II,III,aVR,aVL,aVF,V1,V5,V6 Electronically Signed On 07-23-2024 16:36:39 PST by Christ Li Please click the below link to view image of tracing.
[2024-07-22] MEDS: cefTRIAXone 1GM/50ML D5W 50 ML IV SCH (09:15)
[2024-07-22] MEDS: AZITHROMYCIN 500MG/ 250ML 250 ML IV SCH (09:16)
[2024-07-22] MEDS: FAMOTIDINE (10MG/ML) 2ML VL IV SCH (09:16)
[2024-07-22] MEDS: ENOXAPARIN SOD 30 MG/0.3 ML SYRINGE SC SCH (09:17)
[2024-07-22] MEDS ORDERED: VANCOMYCIN PER PHARMACY 0 MG IV SCH (13:30)
--- NOTE | 2024-07-22 13:52 | DVHPN2 ---
Subjective Had a flu recently and since then has been coughing then for the last 2 days he was having these with some blood in the sputum Changes from previous H/P or p: Changes Eyes: No Pain, No Vision change, No Conjunctivae inflammation, No Eyelid inflammation, No Other, No Redness ENT: No Ear pain, No Ear discharge, No Nose pain, No Nose discharge, No Nose congestion, No Mouth pain, No Mouth swelling, No Throat pain, No Throat swelling, No Other Cardiovascular: No Chest Pain, No Palpitations, No Orthopnea, No Paroxysmal Noc. Dyspnea, No Edema, No Lt Headedness, No Other Respiratory: Cough; No Dry, No Shortness of breath, No SOB with excertion, No Wheezing; Hemoptysis; No Pleuritic Pain, No Sputum, No Other Gastrointestinal: No Nausea, No Vomiting, No Abdominal Pain, No Diarrhea, No Constipation, No Melena, No Hematochezia, No Other Genitourinary: No Dysuria, No Frequency, No Incontinence, No Hematuria, No Retention, No Other Musculoskeletal: No other, No neck pain, No shoulder pain, No arm pain, No back pain, No hand pain, No leg pain, No foot pain Skin: No Rash, No Lesions, No Jaundice, No Bruising, No Other Objective Vitals Vital Signs Date Time Temp Pulse Resp B/P (MAP) Pulse Ox O2 Delivery O2 Flow Rate FiO2 07/22/24 12:05 97.8 102 16 102/58 (73) 95 97.8 07/22/24 10:23 2.0 07/22/24 10:23 Nasal Cannula* 28 Intake/Output Intake and Output 07/22/24 07:00 Intake Total 1040 ml Output Total 3 ml Balance 1037 ml Intake Oral 840 ml IV Total 200 ml Output Urine Total 3 ml # Bowel Movements 1 General Appearance: Alert, Oriented X3, Cooperative, mild distress Lungs: Clear to auscultation, Normal air movement Cardiovascular: Regular rate, Normal S1, Normal S2 Abdomen: Normal bowel sounds, Soft, No tenderness Extremities: No edema Medications Current Medications Medications Dose Ordered Sig/Deuce Route Start Time Stop Time Status Last Admin Dose Admin Albuterol 2.5 mg Q4HWA NEB 07/21/24 18:00 07/22/24 10:23 2.5 MG Albuterol 2.5 mg Q2HPRN PRN NEB 07/21/24 17:00 Ipratropium [place] 0.5 mg Q4HWA NEB 07/21/24 18:00 07/22/24 10:23 0.5 MG Ipratropium [place] 0.5 mg Q2HPRN PRN NEB 07/21/24 17:00 Methylprednisolone Sodium Succinate 40 mg Q8HR IV 07/21/24 22:00 07/22/24 12:58 40 MG Famotidine 20 mg DAILY IV 07/22/24 10:00 07/22/24 09:16 20 MG Ceftriaxone Sodium 50 ml @ 100 mls/hr DAILY@09 IV 07/22/24 09:00 07/22/24 09:15 100 MLS/HR Azithromycin 250 ml @ 125 mls/hr DAILY IV 07/22/24 10:00 07/22/24 09:16 125 MLS/HR Acetaminophen/ Hydrocodone Bitart 1 tab Q4HP PRN PO 07/21/24 17:00 Ondansetron HCl 4 mg Q4HP PRN IV 07/21/24 17:00 Acetaminophen 650 mg Q6HP PRN PO 07/21/24 17:00 Diphenhydramine HCl 25 mg Q4HP PRN IV 07/21/24 17:15 Enoxaparin Sodium 30 mg DAILY SC 07/22/24 10:00 07/22/24 09:17 30 MG Vancomycin HCl 0 ml @ 0 mls/hr UD IV 07/22/24 13:30 UNV Laboratory Results Laboratory Tests 07/22/24 05:43 Chemistry Test 07/22/24 05:43 Albumin 4.2 g/dL (3.2-4.8) Calcium Level 9.4 mg/dL (8.7-10.4) Total Protein 7.0 g/dL (5.7-8.2) LFT Test 07/22/24 05:43 Alanine Aminotransferase (ALT) 33 U/L (7-40) Alkaline Phosphatase 89 U/L (46-116) Aspartate Amino Transferase (AST) 25 U/L (13-40) Total Bilirubin 0.4 mg/dL (0.2-1.0) Urinalysis Test 07/21/24 10:55 Urine Color Light-yellow (Yellow) Urine Clarity Clear (Clear) Urine pH 6.0 (5.0-9.0) Urine Specific [place] 1.010 (1.001-1.035) Urine Protein Negative (Negative) Urine Ketones Negative (Negative) Urine Blood Negative /uL (Negative) Urine Nitrite Negative (Negative) Urine Bilirubin Negative (Negative) Urine Urobilinogen Normal mg/dL (Negative) Urine Leukocyte Esterase Negative /uL (Negative) Urine RBC <1 /hpf (0 - 3) Urine Microscopic WBC 1 /HPF (0-3) Urine Squamous Epithelial Cells None seen /hpf (<5) Urine Bacteria None seen /hpf (None Seen) Urine Glucose Normal mg/dL (Normal) Microbiology Microbiology Date/Time Source Procedure Growth Status 07/21/24 10:47 Blood Blood Culture - Preliminary Resulted Assessment/Plan Assessment/Plan Acute upper respiratory infection Hemoptysis History of pulmonary embolism History of COVID Bacteremia Plan Continue IV antibiotics with Rocephin and Zithromax Add vancomycin Oxygen as needed Antitussives DC Lovenox MRSA screening O2 prn CTA lungs rule out PE Full code Advance directives discussed for 15 minute Plan discussed with: Patient My Orders Orders - KIRK HAN MD Procedure Category Date Status Time Vancomycin Per PHA 07/22/24 Logged Pharmacy 13:30 Vancomycin 1gm/250ml PHA 07/22/24 Logged Kit 13:30 Date of Service: Jul 22, 2024 Billing Provider: KIRK HAN MD Common Visit Codes: [id number] INP/OBS CARE(HIGH) Secondary Visit Codes: [id number] CARE PLAN 30 MINUTES KIRK HAN MD Jul 22, 2024 13:52
[2024-07-22] MEDS: IOHEXOL 350 MG/ML 100ML IJ ONE (14:15)
[2024-07-22] MEDS: guaiFENesin-DM 100/10mg/5ml SYR PO PRN (15:00)
[2024-07-22] MEDS: VANCOMYCIN 1GM/250ML KIT 250 ML IV ONE (15:26)
--- NOTE | 2024-07-22 16:08 | DVH ---
CTA CHEST INDICATION: hemoptysis TECHNIQUE: Multidetector CTA of the chest was performed of the chest with 100 cc of intravenous contr ast. PULMONARY ANGIOGRAPHY PROTOCOL was utilized using a bolus-tracking technique centered on the norman n pulmonary artery. Axial, coronal and sagittal multiplanar and MIP reformats were performed. Radiation Dose Information: CT Dose: CTDI volume is 25 mGy. Dose-length product is 962 mGy*cm The dose indicators for CT are the volume Computed Tomography (CT) Dose Index (CTDIvol) and the Dose Length Product (DLP), and are measured in units of mGy and mGy-cm, respectively. These indicators are not patient dose, but values generated from the CT scanner acquisition factors. The report includes radiation exposure data for exposures received during this examination. Comparison: CT ANGIO CHEST CONTRAST on DOS: 08/04/21 Findings: Pulmonary artery: There is no evidence of a pulmonary arterial filling defect to suggest pulmonary e mbolism. The main pulmonary artery demonstrates normal caliber. Lungs/Pleura: No focal consolidation, pulmonary mass, or suspicious pulmonary nodule. There is minim al scarring versus atelectasis in the posterior lung bases. There is no pleural effusion or pneumotho rax. The central airways are clear. Heart/Vascular Structures: Normal heart size. The thoracic aorta demonstrates normal caliber. There is no evidence of pericardial effusion. Lymph Nodes: There is no evidence of thoracic lymphadenopathy. Musculoskeletal: No acute osseous abnormality. Upper abdomen: Limited portions of the upper abdomen are unremarkable. IMPRESSION: 1. There is no acute intrathoracic abnormality. There is no evidence of a pulmonary arterial filling defect to suggest pulmonary embolism. HS:Y
[2024-07-22] MEDS: VANCOMYCIN 1.25GM/250ML 250 ML IV SCH (23:00)
[2024-07-23] VITALS (19 sets, daily range): BP systolic 119–140; BP diastolic 61–84; PULSE 11–111; RESP 16–19; TEMP 97.8–98.4; O2SAT 90–99
[2024-07-23 06:19] LABS: Basophils # (auto) 0 10 ^3/uL (0-0.2); Eosinophils # (auto) 0 10 ^3/uL (0-0.8); Hematocrit 44.2 % (41.0-53.0); Hemoglobin 14.9 g/dL (13.5-17.5); Lymphocytes # (auto) 0.7 10 ^3/uL (0.4-5.4); Lymphocytes % (auto) 3.6 % (10.0-50.0); Mean Corpuscular Hemoglobin 31.9 pg (28.0-32.0); Mean Corpuscular Hgb Conc. 33.7 g/dL (32.0-36.0); Mean Corpuscular Volume 94.6 fL (80.0-100.0); Monocytes % (auto) 5.2 % (0.0-12.0); Neutrophils # (auto) 17.1 10 ^3/uL (1.6-8.6); Neutrophils % (auto) 91.2 % (37.0-80.0); Platelet Count (auto) 173 10^3/uL (140-450); Red Blood Cells 4.68 10^6/uL (4.5-5.90); Red Cell Distribution Width 13.6 % (11.8-14.3); White Blood Cell 18.7 10^3/uL (4.4-10.8)
[2024-07-23 06:39] LABS: Alanine Aminotransferase 35 U/L (7-40); Albumin 4.4 g/dL (3.2-4.8); Alkaline Phosphatase 90 U/L (46-116); Anion Gap 7 (5-15); Aspartate Aminotransferase 30 U/L (13-40); BUN/Creatinine Ratio 15.5 (10.0-20.0); Bilirubin, Total 0.6 mg/dL (0.2-1.0); Blood Urea Nitrogen 16 mg/dL (9-23); Calcium 9.3 mg/dL (8.7-10.4); Carbon Dioxide 26 mmol/L (20-31); Chloride 106 mmol/L (98-107); Glucose 137 mg/dL (74-106); Magnesium 2.3 mg/dL (1.6-2.6); Potassium 4.6 mmol/L (3.5-5.1); Sodium 139 mmol/L (136-145)
[2024-07-23] MEDS: VANCOMYCIN 1.25GM/250ML 250 ML IV SCH (08:15)
[2024-07-23 09:15] LABS: Hepatitis B Surface Antigen Negative (Negative); Hepatitis C Antibody Negative (Negative)
--- NOTE | 2024-07-23 12:52 | DVHPN2 ---
Subjective Complains of cough Blood culture still shows Gram-positive cocci in clusters Changes from previous H/P or p: Changes Eyes: No Pain, No Vision change, No Conjunctivae inflammation, No Eyelid inflammation, No Other, No Redness ENT: No Ear pain, No Ear discharge, No Nose pain, No Nose discharge, No Nose congestion, No Mouth pain, No Mouth swelling, No Throat pain, No Throat swelling, No Other Cardiovascular: No Chest Pain, No Palpitations, No Orthopnea, No Paroxysmal Noc. Dyspnea, No Edema, No Lt Headedness, No Other Respiratory: Cough; No Dry, No Shortness of breath, No SOB with excertion, No Wheezing; Hemoptysis; No Pleuritic Pain, No Sputum, No Other Gastrointestinal: No Nausea, No Vomiting, No Abdominal Pain, No Diarrhea, No Constipation, No Melena, No Hematochezia, No Other Genitourinary: No Dysuria, No Frequency, No Incontinence, No Hematuria, No Retention, No Other Musculoskeletal: No other, No neck pain, No shoulder pain, No arm pain, No back pain, No hand pain, No leg pain, No foot pain Skin: No Rash, No Lesions, No Jaundice, No Bruising, No Other Objective Vitals Vital Signs Date Time Temp Pulse Resp B/P (MAP) Pulse Ox O2 Delivery O2 Flow Rate FiO2 07/23/24 11:09 91 18 98 07/23/24 11:03 Room Air 0.0 07/23/24 11:03 21 07/23/24 08:43 98.4 140/84 (102) 98.4 Intake/Output Intake and Output 07/23/24 07:00 Intake Total 1900 ml Output Total 3 ml Balance 1897 ml Intake Oral 1600 ml IV Total 300 ml Output Urine Total 3 ml # Voids 3 General Appearance: Alert, Oriented X3, Cooperative, mild distress Lungs: Clear to auscultation, Normal air movement Cardiovascular: Regular rate, Normal S1, Normal S2 Abdomen: Normal bowel sounds, Soft, No tenderness Extremities: No edema Medications Current Medications Medications Dose Ordered Sig/Deuce Route Start Time Stop Time Status Last Admin Dose Admin Albuterol 2.5 mg Q4HWA NEB 07/21/24 18:00 07/23/24 11:03 2.5 MG Albuterol 2.5 mg Q2HPRN PRN NEB 07/21/24 17:00 Ipratropium [place] 0.5 mg Q4HWA NEB 07/21/24 18:00 07/23/24 11:02 0.5 MG Ipratropium [place] 0.5 mg Q2HPRN PRN NEB 07/21/24 17:00 Methylprednisolone Sodium Succinate 40 mg Q8HR IV 07/21/24 22:00 07/23/24 06:18 40 MG Famotidine 20 mg DAILY IV 07/22/24 10:00 07/23/24 09:24 20 MG Ceftriaxone Sodium 50 ml @ 100 mls/hr DAILY@09 IV 07/22/24 09:00 07/23/24 09:24 100 MLS/HR Azithromycin 250 ml @ 125 mls/hr DAILY IV 07/22/24 10:00 07/23/24 10:00 125 MLS/HR Acetaminophen/ Hydrocodone Bitart 1 tab Q4HP PRN PO 07/21/24 17:00 Ondansetron HCl 4 mg Q4HP PRN IV 07/21/24 17:00 Acetaminophen 650 mg Q6HP PRN PO 07/21/24 17:00 Diphenhydramine HCl 25 mg Q4HP PRN IV 07/21/24 17:15 Vancomycin HCl 0 ml @ 0 mls/hr UD IV 07/22/24 13:30 Guaifenesin/ Dextromethorphan 10 ml Q4HP PRN PO 07/22/24 13:45 07/23/24 11:27 10 ML Vancomycin HCl 250 ml @ 200 mls/hr Q8H IV 07/23/24 08:00 07/23/24 08:15 200 MLS/HR Laboratory Results Laboratory Tests 07/23/24 05:30 Chemistry Test 07/23/24 05:30 Albumin 4.4 g/dL (3.2-4.8) Calcium Level 9.3 mg/dL (8.7-10.4) Magnesium Level 2.3 mg/dL (1.6-2.6) Total Protein 7.0 g/dL (5.7-8.2) LFT Test 07/23/24 05:30 Alanine Aminotransferase (ALT) 35 U/L (7-40) Alkaline Phosphatase 90 U/L (46-116) Aspartate Amino Transferase (AST) 30 U/L (13-40) Total Bilirubin 0.6 mg/dL (0.2-1.0) Urinalysis Test 07/21/24 10:55 Urine Color Light-yellow (Yellow) Urine Clarity Clear (Clear) Urine pH 6.0 (5.0-9.0) Urine Specific [place] 1.010 (1.001-1.035) Urine Protein Negative (Negative) Urine Ketones Negative (Negative) Urine Blood Negative /uL (Negative) Urine Nitrite Negative (Negative) Urine Bilirubin Negative (Negative) Urine Urobilinogen Normal mg/dL (Negative) Urine Leukocyte Esterase Negative /uL (Negative) Urine RBC <1 /hpf (0 - 3) Urine Microscopic WBC 1 /HPF (0-3) Urine Squamous Epithelial Cells None seen /hpf (<5) Urine Bacteria None seen /hpf (None Seen) Urine Glucose Normal mg/dL (Normal) Microbiology Microbiology Date/Time Source Procedure Growth Status 07/21/24 10:47 Blood Blood Culture - Preliminary Resulted Assessment/Plan Assessment/Plan Acute upper respiratory infection Hemoptysis History of pulmonary embolism History of COVID Bacteremia Anxiety Plan 07/22/2024: Continue IV antibiotics with Rocephin and Zithromax Add vancomycin Oxygen as needed Antitussives DC Lovenox MRSA screening O2 prn CTA lungs rule out PE Full code Advance directives discussed for 15 minute 07/23/2024: Continue the current management with IV antibiotics Cough medication Anxiety: Order Xanax p.r.n. Bacteremia: Gram-positive cocci in clusters Continue current management Plan discussed with: Patient My Orders Orders - KIRK HAN MD Procedure Category Date Status Time Vancomycin Per PHA 07/22/24 In Process Pharmacy 13:30 Mrsa Screen [facility] 07/22/24 In Process 13:45 Guaifenesin-Dextromet PHA 07/22/24 In Process Liquid (Robitussin 13:[address] 07/22/24 Resulted Contrast 13:50 Vancomycin Per ANDREIA 07/23/24 In Process Pharmacy Protoc 14:00 Vancomycin PHA 07/23/24 In Process 1.25gm/250ml 08:00 Vancomycin,Trough LAB 07/24/24 Verified 07:00 Date of Service: Jul 23, 2024 Billing Provider: KIRK HAN MD Common Visit Codes: [id number] INP/OBS CARE(HIGH) KIRK HAN MD Jul 23, 2024 12:52
[2024-07-24] VITALS (14 sets, daily range): BP systolic 130–146; BP diastolic 59–97; PULSE 84–107; RESP 16–20; TEMP 97.6–97.9; O2SAT 92–99
[2024-07-24 06:35] LABS: Basophils # (auto) 0 10 ^3/uL (0-0.2); Basophils % (auto) 0.1 % (0.0-2.0); Eosinophils # (auto) 0 10 ^3/uL (0-0.8); Hematocrit 45.2 % (41.0-53.0); Hemoglobin 15.2 g/dL (13.5-17.5); Lymphocytes # (auto) 0.5 10 ^3/uL (0.4-5.4); Lymphocytes % (auto) 2.9 % (10.0-50.0); Mean Corpuscular Hemoglobin 32.1 pg (28.0-32.0); Mean Corpuscular Hgb Conc. 33.7 g/dL (32.0-36.0); Mean Corpuscular Volume 95.4 fL (80.0-100.0); Monocytes # (auto) 1.1 10 ^3/uL (0-1.3); Monocytes % (auto) 6.4 % (0.0-12.0); Neutrophils # (auto) 14.9 10 ^3/uL (1.6-8.6); Neutrophils % (auto) 90.6 % (37.0-80.0); Platelet Count (auto) 171 10^3/uL (140-450); Red Blood Cells 4.73 10^6/uL (4.5-5.90); Red Cell Distribution Width 13.7 % (11.8-14.3); White Blood Cell 16.4 10^3/uL (4.4-10.8)
--- NOTE | 2024-07-24 10:11 | DVHPN2 ---
Subjective No change c/o cough No fever Changes from previous H/P or p: Changes Eyes: No Pain, No Vision change, No Conjunctivae inflammation, No Eyelid inflammation, No Other, No Redness ENT: No Ear pain, No Ear discharge, No Nose pain, No Nose discharge, No Nose congestion, No Mouth pain, No Mouth swelling, No Throat pain, No Throat swelling, No Other Cardiovascular: No Chest Pain, No Palpitations, No Orthopnea, No Paroxysmal Noc. Dyspnea, No Edema, No Lt Headedness, No Other Respiratory: Cough; No Dry, No Shortness of breath, No SOB with excertion, No Wheezing; Hemoptysis; No Pleuritic Pain, No Sputum, No Other Gastrointestinal: No Nausea, No Vomiting, No Abdominal Pain, No Diarrhea, No Constipation, No Melena, No Hematochezia, No Other Genitourinary: No Dysuria, No Frequency, No Incontinence, No Hematuria, No Retention, No Other Musculoskeletal: No other, No neck pain, No shoulder pain, No arm pain, No back pain, No hand pain, No leg pain, No foot pain Skin: No Rash, No Lesions, No Jaundice, No Bruising, No Other Objective Vitals Vital Signs Date Time Temp Pulse Resp B/P (MAP) Pulse Ox O2 Delivery O2 Flow Rate FiO2 07/24/24 09:54 92 18 98 07/24/24 09:48 Nasal Cannula 2.0 07/24/24 09:48 28 07/24/24 05:00 97.9 138/79 (98) 97.9 Intake/Output Intake and Output 07/24/24 07:00 Intake Total 2350 ml Balance 2350 ml Intake Oral 1550 ml IV Total 800 ml # Voids 10 # Bowel Movements 4 General Appearance: Alert, Oriented X3, Cooperative, mild distress Lungs: Clear to auscultation, Normal air movement Cardiovascular: Regular rate, Normal S1, Normal S2 Abdomen: Normal bowel sounds, Soft, No tenderness Extremities: No edema Medications Current Medications Medications Dose Ordered Sig/Deuce Route Start Time Stop Time Status Last Admin Dose Admin Albuterol 2.5 mg Q4HWA NEB 07/21/24 18:00 07/24/24 09:48 2.5 MG Albuterol 2.5 mg Q2HPRN PRN NEB 07/21/24 17:00 Ipratropium [place] 0.5 mg Q4HWA NEB 07/21/24 18:00 07/24/24 09:48 0.5 MG Ipratropium [place] 0.5 mg Q2HPRN PRN NEB 07/21/24 17:00 Methylprednisolone Sodium Succinate 40 mg Q8HR IV 07/21/24 22:00 07/24/24 06:18 40 MG Famotidine 20 mg DAILY IV 07/22/24 10:00 07/24/24 10:02 20 MG Ceftriaxone Sodium 50 ml @ 100 mls/hr DAILY@09 IV 07/22/24 09:00 07/24/24 10:03 100 MLS/HR Azithromycin 250 ml @ 125 mls/hr DAILY IV 07/22/24 10:00 07/24/24 10:02 125 MLS/HR Acetaminophen/ Hydrocodone Bitart 1 tab Q4HP PRN PO 07/21/24 17:00 Ondansetron HCl 4 mg Q4HP PRN IV 07/21/24 17:00 Acetaminophen 650 mg Q6HP PRN PO 07/21/24 17:00 Diphenhydramine HCl 25 mg Q4HP PRN IV 07/21/24 17:15 Vancomycin HCl 0 ml @ 0 mls/hr UD IV 07/22/24 13:30 Guaifenesin/ Dextromethorphan 10 ml Q4HP PRN PO 07/22/24 13:45 07/23/24 22:05 10 ML Vancomycin HCl 250 ml @ 200 mls/hr Q8H IV 07/23/24 08:00 07/24/24 08:42 200 MLS/HR Alprazolam 0.25 mg Q8HP PRN PO 07/23/24 13:00 Laboratory Results Laboratory Tests 07/23/24 05:30 07/24/24 05:26 Urinalysis Test 07/21/24 10:55 Urine Color Light-yellow (Yellow) Urine Clarity Clear (Clear) Urine pH 6.0 (5.0-9.0) Urine Specific [place] 1.010 (1.001-1.035) Urine Protein Negative (Negative) Urine Ketones Negative (Negative) Urine Blood Negative /uL (Negative) Urine Nitrite Negative (Negative) Urine Bilirubin Negative (Negative) Urine Urobilinogen Normal mg/dL (Negative) Urine Leukocyte Esterase Negative /uL (Negative) Urine RBC <1 /hpf (0 - 3) Urine Microscopic WBC 1 /HPF (0-3) Urine Squamous Epithelial Cells None seen /hpf (<5) Urine Bacteria None seen /hpf (None Seen) Urine Glucose Normal mg/dL (Normal) Microbiology Microbiology Date/Time Source Procedure Growth Status 07/22/24 13:40 Nose MRSA Screen - Final Complete 07/21/24 10:47 Blood Blood Culture - Preliminary Resulted Assessment/Plan Assessment/Plan Acute upper respiratory infection Hemoptysis History of pulmonary embolism History of COVID Bacteremia Anxiety Plan 07/22/2024: Continue IV antibiotics with Rocephin and Zithromax Add vancomycin Oxygen as needed Antitussives DC Lovenox MRSA screening O2 prn CTA lungs rule out PE Full code Advance directives discussed for 15 minute 07/23/2024: Continue the current management with IV antibiotics Cough medication Anxiety: Order Xanax p.r.n. Bacteremia: Gram-positive cocci in clusters Continue current management 07/24/24: Continue IV antibiotics Bacteremia: Pending sensitivity Plan discussed with: Patient My Orders Orders - KIRK HAN MD Procedure Category Date Status Time Alprazolam Tablet PHA 07/23/24 In Process (Xanax Tablet) 13:00 Basic Metabolic Panel LAB 07/25/24 Verified 04:00 Date of Service: Jul 24, 2024 Billing Provider: KIRK HAN MD Common Visit Codes: [id number] INP/OBS CARE(HIGH) KIRK HAN MD Jul 24, 2024 10:10
[2024-07-24] MEDS: methylPREDNISolone SOD SUCC 40 MG/ML VL IV SCH (22:17)
[2024-07-25] VITALS (12 sets, daily range): BP systolic 110–146; BP diastolic 71–81; PULSE 72–97; RESP 18–20; TEMP 97.5–98.4; O2SAT 91–97
[2024-07-25 07:22] LABS: Chloride 104 mmol/L (98-107); Potassium 4.3 mmol/L (3.5-5.1); Sodium 137 mmol/L (136-145)
[2024-07-25 07:23] LABS: Anion Gap 7 (5-15); Calcium 8.9 mg/dL (8.7-10.4); Carbon Dioxide 26 mmol/L (20-31)
[2024-07-25 07:28] LABS: BUN/Creatinine Ratio 15.7 (10.0-20.0); Blood Urea Nitrogen 17 mg/dL (9-23)
[2024-07-25 07:31] LABS: Glucose 187 mg/dL (74-106)
--- NOTE | 2024-07-25 12:51 | DVHPN2 ---
Reviewed: Care Plan Changes from previous H/P or p: No Changes General: Per HPI Eyes: No Pain, No Vision change, No Conjunctivae inflammation, No Eyelid inflammation, No Other, No Redness ENT: No Ear pain, No Ear discharge, No Nose pain, No Nose discharge, No Nose congestion, No Mouth pain, No Mouth swelling, No Throat pain, No Throat swelling, No Other Cardiovascular: No Chest Pain, No Palpitations, No Orthopnea, No Paroxysmal Noc. Dyspnea, No Edema, No Lt Headedness, No Other Respiratory: Cough; No Dry, No Shortness of breath, No SOB with excertion, No Wheezing; Hemoptysis; No Pleuritic Pain, No Sputum, No Other Gastrointestinal: No Nausea, No Vomiting, No Abdominal Pain, No Diarrhea, No Constipation, No Melena, No Hematochezia, No Other Genitourinary: No Dysuria, No Frequency, No Incontinence, No Hematuria, No Retention, No Other Musculoskeletal: No other, No neck pain, No shoulder pain, No arm pain, No back pain, No hand pain, No leg pain, No foot pain Skin: No Rash, No Lesions, No Jaundice, No Bruising, No Other Objective Vitals Vital Signs Date Time Temp Pulse Resp B/P (MAP) Pulse Ox O2 Delivery O2 Flow Rate FiO2 07/25/24 08:37 97.9 72 18 110/71 (84) 95 97.9 07/25/24 08:00 Nasal Cannula* 2 28 Intake/Output Intake and Output 07/25/24 07:00 Intake Total 3424 ml Output Total 1 ml Balance 3423 ml Intake Oral 2924 ml IV Total 500 ml Stool Total 1 ml # Voids 7 General Appearance: Alert, Oriented X3, Cooperative, mild distress Lungs: Clear to auscultation, Normal air movement Cardiovascular: Regular rate, Normal S1, Normal S2 Abdomen: Normal bowel sounds, Soft, No tenderness Extremities: No edema Medications Current Medications Medications Dose Ordered Sig/Deuce Route Start Time Stop Time Status Last Admin Dose Admin Albuterol 2.5 mg Q4HWA NEB 07/21/24 18:00 07/24/24 14:55 2.5 MG Albuterol 2.5 mg Q2HPRN PRN NEB 07/21/24 17:00 Ipratropium [place] 0.5 mg Q4HWA NEB 07/21/24 18:00 07/24/24 14:55 0.5 MG Ipratropium [place] 0.5 mg Q2HPRN PRN NEB 07/21/24 17:00 Famotidine 20 mg DAILY IV 07/22/24 10:00 07/25/24 09:24 20 MG Ceftriaxone Sodium 50 ml @ 100 mls/hr DAILY@09 IV 07/22/24 09:00 07/25/24 09:24 100 MLS/HR Azithromycin 250 ml @ 125 mls/hr DAILY IV 07/22/24 10:00 07/25/24 10:43 125 MLS/HR Acetaminophen/ Hydrocodone Bitart 1 tab Q4HP PRN PO 07/21/24 17:00 Ondansetron HCl 4 mg Q4HP PRN IV 07/21/24 17:00 Acetaminophen 650 mg Q6HP PRN PO 07/21/24 17:00 Diphenhydramine HCl 25 mg Q4HP PRN IV 07/21/24 17:15 Vancomycin HCl 0 ml @ 0 mls/hr UD IV 07/22/24 13:30 Guaifenesin/ Dextromethorphan 10 ml Q4HP PRN PO 07/22/24 13:45 07/24/24 22:17 10 ML Vancomycin HCl 250 ml @ 200 mls/hr Q8H IV 07/23/24 08:00 07/25/24 08:32 200 MLS/HR Alprazolam 0.25 mg Q8HP PRN PO 07/23/24 13:00 Methylprednisolone Sodium Succinate 30 mg Q12HR IV 07/24/24 22:00 07/25/24 09:24 30 MG Laboratory Results Laboratory Tests 07/24/24 05:26 07/25/24 06:20 Chemistry Test 07/25/24 06:20 Calcium Level 8.9 mg/dL (8.7-10.4) Urinalysis Test 07/21/24 10:55 Urine Color Light-yellow (Yellow) Urine Clarity Clear (Clear) Urine pH 6.0 (5.0-9.0) Urine Specific [place] 1.010 (1.001-1.035) Urine Protein Negative (Negative) Urine Ketones Negative (Negative) Urine Blood Negative /uL (Negative) Urine Nitrite Negative (Negative) Urine Bilirubin Negative (Negative) Urine Urobilinogen Normal mg/dL (Negative) Urine Leukocyte Esterase Negative /uL (Negative) Urine RBC <1 /hpf (0 - 3) Urine Microscopic WBC 1 /HPF (0-3) Urine Squamous Epithelial Cells None seen /hpf (<5) Urine Bacteria None seen /hpf (None Seen) Urine Glucose Normal mg/dL (Normal) Microbiology Microbiology Date/Time Source Procedure Growth Status 07/22/24 13:40 Nose MRSA Screen - Final Complete 07/21/24 10:47 Blood Blood Culture - Preliminary Resulted Assessment/Plan Assessment/Plan Acute upper respiratory infection Hemoptysis History of pulmonary embolism History of COVID Bacteremia Anxiety Plan 07/22/2024: Continue IV antibiotics with Rocephin and Zithromax Add vancomycin Oxygen as needed Antitussives DC Lovenox MRSA screening O2 prn CTA lungs rule out PE Full code Advance directives discussed for 15 minute 07/23/2024: Continue the current management with IV antibiotics Cough medication Anxiety: Order Xanax p.r.n. Bacteremia: Gram-positive cocci in clusters Continue current management 07/24/24: Continue IV antibiotics Bacteremia: Pending sensitivity 07/25/2024: continue with IV ABx. still on nasal canula (pt does not use O2 at home) still has coughing, started on guaifenesin and codeine for coughing Plan discussed with: Patient Date of Service: Jul 25, 2024 Billing Provider: ISIDRO ALVARADO DO Common Visit Codes: [id number] INP/OBS CARE(HIGH) ISIDRO ALVARADO DO Jul 25, 2024 12:51
[2024-07-25] MEDS: ALPRAZolam 0.25 MG TAB PO PRN (22:49)
[2024-07-26] VITALS (17 sets, daily range): BP systolic 112–137; BP diastolic 47–95; PULSE 64–97; RESP 16–20; TEMP 97.4–98.2; O2SAT 92–100
[2024-07-26] MEDS ORDERED: guaiFENesin-CODEINE Liq 5 ML UD GT PRN (15:00)
--- NOTE | 2024-07-26 15:10 | DVHPN2 ---
Reviewed: Care Plan Changes from previous H/P or p: No Changes General: Per HPI Eyes: No Pain, No Vision change, No Conjunctivae inflammation, No Eyelid inflammation, No Other, No Redness ENT: No Ear pain, No Ear discharge, No Nose pain, No Nose discharge, No Nose congestion, No Mouth pain, No Mouth swelling, No Throat pain, No Throat swelling, No Other Cardiovascular: No Chest Pain, No Palpitations, No Orthopnea, No Paroxysmal Noc. Dyspnea, No Edema, No Lt Headedness, No Other Respiratory: Cough; No Dry, No Shortness of breath, No SOB with excertion, No Wheezing; Hemoptysis; No Pleuritic Pain, No Sputum, No Other Gastrointestinal: No Nausea, No Vomiting, No Abdominal Pain, No Diarrhea, No Constipation, No Melena, No Hematochezia, No Other Genitourinary: No Dysuria, No Frequency, No Incontinence, No Hematuria, No Retention, No Other Musculoskeletal: No other, No neck pain, No shoulder pain, No arm pain, No back pain, No hand pain, No leg pain, No foot pain Skin: No Rash, No Lesions, No Jaundice, No Bruising, No Other Objective Vitals Vital Signs Date Time Temp Pulse Resp B/P (MAP) Pulse Ox O2 Delivery O2 Flow Rate FiO2 07/26/24 13:34 73 18 100 07/26/24 13:28 Room Air* 0 21 07/26/24 13:00 97.8 117/70 (86) 97.8 Intake/Output Intake and Output 07/26/24 07:00 Intake Total 2360 ml Balance 2360 ml Intake Oral 1560 ml IV Total 800 ml # Voids 6 # Bowel Movements 2 General Appearance: Alert, Oriented X3, Cooperative, mild distress Lungs: Clear to auscultation, Normal air movement Cardiovascular: Regular rate, Normal S1, Normal S2 Abdomen: Normal bowel sounds, Soft, No tenderness Extremities: No edema Medications Current Medications Medications Dose Ordered Sig/Deuce Route Start Time Stop Time Status Last Admin Dose Admin Albuterol 2.5 mg Q4HWA [facility] 07/21/24 18:00 07/26/24 13:28 2.5 MG Albuterol 2.5 mg Q2HPRN PRN NEB 07/21/24 17:00 Ipratropium [place] 0.5 mg Q4HWA [facility] 07/21/24 18:00 07/26/24 13:28 0.5 MG Ipratropium [place] 0.5 mg Q2HPRN PRN NEB 07/21/24 17:00 Famotidine 20 mg DAILY IV 07/22/24 10:00 07/26/24 11:09 20 MG Ceftriaxone Sodium 50 ml @ 100 mls/hr DAILY@09 IV 07/22/24 09:00 07/26/24 11:10 100 MLS/HR Azithromycin 250 ml @ 125 mls/hr DAILY IV 07/22/24 10:00 07/26/24 12:19 125 MLS/HR Acetaminophen/ Hydrocodone Bitart 1 tab Q4HP PRN PO 07/21/24 17:00 Ondansetron HCl 4 mg Q4HP PRN IV 07/21/24 17:00 Acetaminophen 650 mg Q6HP PRN PO 07/21/24 17:00 Diphenhydramine HCl 25 mg Q4HP PRN IV 07/21/24 17:15 Vancomycin HCl 0 ml @ 0 mls/hr UD IV 07/22/24 13:30 Guaifenesin/ Dextromethorphan 10 ml Q4HP PRN PO 07/22/24 13:45 07/25/24 22:50 10 ML Vancomycin HCl 250 ml @ 200 mls/hr Q8H IV 07/23/24 08:00 07/26/24 08:29 200 MLS/HR Alprazolam 0.25 mg Q8HP PRN PO 07/23/24 13:00 07/25/24 22:49 0.25 MG Methylprednisolone Sodium Succinate 30 mg Q12HR IV 07/24/24 22:00 07/26/24 11:10 30 MG Laboratory Results Laboratory Tests 07/24/24 05:26 07/25/24 06:20 Urinalysis Test 07/21/24 10:55 Urine Color Light-yellow (Yellow) Urine Clarity Clear (Clear) Urine pH 6.0 (5.0-9.0) Urine Specific [place] 1.010 (1.001-1.035) Urine Protein Negative (Negative) Urine Ketones Negative (Negative) Urine Blood Negative /uL (Negative) Urine Nitrite Negative (Negative) Urine Bilirubin Negative (Negative) Urine Urobilinogen Normal mg/dL (Negative) Urine Leukocyte Esterase Negative /uL (Negative) Urine RBC <1 /hpf (0 - 3) Urine Microscopic WBC 1 /HPF (0-3) Urine Squamous Epithelial Cells None seen /hpf (<5) Urine Bacteria None seen /hpf (None Seen) Urine Glucose Normal mg/dL (Normal) Microbiology Microbiology Date/Time Source Procedure Growth Status 07/25/24 14:10 Blood Blood Culture - Preliminary NO GROWTH AFTER 24 HOURS OF INCUBATION. Resulted 07/22/24 13:40 Nose MRSA Screen - Final Complete Assessment/Plan Assessment/Plan Acute upper respiratory infection Hemoptysis History of pulmonary embolism History of COVID Bacteremia Anxiety Plan 07/22/2024: Continue IV antibiotics with Rocephin and Zithromax Add vancomycin Oxygen as needed Antitussives DC Lovenox MRSA screening O2 prn CTA lungs rule out PE Full code Advance directives discussed for 15 minute 07/23/2024: Continue the current management with IV antibiotics Cough medication Anxiety: Order Xanax p.r.n. Bacteremia: Gram-positive cocci in clusters Continue current management 07/24/24: Continue IV antibiotics Bacteremia: Pending sensitivity 07/25/2024: continue with IV ABx. still on nasal canula (pt does not use O2 at home) still has coughing, started on guaifenesin and codeine for coughing : continue with IV ABx still coughing, still short of breath. Pulm on the case Plan discussed with: Patient My Orders Orders - ISIDRO ALVARADO DO Procedure Category Date Status Time *Consult CONS 07/26/24 Transmitted / 14:50 Guaifenesin-Codeine PHA 07/26/24 In Process Liquid (Robitussin/C 15:00 Date of Service: Jul 26, 2024 Billing Provider: ISIDRO ALVARADO DO Common Visit Codes: [id number] INP/OBS CARE(HIGH) ISIDRO ALVARADO DO Jul 26, 2024 15:10
--- NOTE | 2024-07-26 23:22 | DVHPN2 ---
Progress Note - Dictate Date Seen: Jul 26, 2024 Medical Necessity Reason Pt with a Central, PICC or Fol: No Subjective Patient seen and examined at bedside. Remains on supplemental oxygen Overnight events reviewed. vital signs Vital Sign Date Time Temp Pulse Resp B/P (MAP) Pulse Ox O2 Delivery O2 Flow Rate FiO2 07/26/24 22:17 97 18 98 07/26/24 22:11 Nasal Cannula* 2 28 07/26/24 21:00 97.9 112/68 (83) 97.9 Total Intake and Output 07/25/24 07/25/24 07/26/24 15:00 23:00 07:00 Intake Total 550 ml 910 ml 900 ml Balance 550 ml 910 ml 900 ml medications Current Medications Medications Dose Ordered Sig/Deuce Route Start Time Stop Time Status Last Admin Dose Admin Albuterol 2.5 mg Q4HWA NEB 07/21/24 18:00 07/26/24 22:11 Albuterol 2.5 mg Q2HPRN PRN NEB 07/21/24 17:00 Ipratropium [place] 0.5 mg Q4HWA NEB 07/21/24 18:00 07/26/24 22:11 Ipratropium [place] 0.5 mg Q2HPRN PRN NEB 07/21/24 17:00 Famotidine 20 mg DAILY IV 07/22/24 10:00 07/26/24 11:09 Ceftriaxone Sodium 50 ml @ 100 mls/hr DAILY@09 IV 07/22/24 09:00 07/26/24 11:10 Azithromycin 250 ml @ 125 mls/hr DAILY IV 07/22/24 10:00 07/26/24 12:19 Acetaminophen/ Hydrocodone Bitart 1 tab Q4HP PRN PO 07/21/24 17:00 Ondansetron HCl 4 mg Q4HP PRN IV 07/21/24 17:00 Acetaminophen 650 mg Q6HP PRN PO 07/21/24 17:00 Diphenhydramine HCl 25 mg Q4HP PRN IV 07/21/24 17:15 Vancomycin HCl 0 ml @ 0 mls/hr UD IV 07/22/24 13:30 Guaifenesin/ Dextromethorphan 10 ml Q4HP PRN PO 07/22/24 13:45 07/26/24 22:31 Alprazolam 0.25 mg Q8HP PRN PO 07/23/24 13:00 07/26/24 22:31 Methylprednisolone Sodium Succinate 30 mg Q12HR IV 07/24/24 22:00 07/26/24 22:31 Guaifenesin/ Codeine Phosphate 5 ml Q4HPRN PRN GT 07/26/24 15:00 objective Gen.: Patient lying in bed in no apparent distress. On supplemental oxygen. Head: Normocephalic, atraumatic. Eyes: EOMI/PERRLA. Ears: Normal hearing. Normal anatomy. Neck/trachea: Trachea midline, supple. Nose: Normal external anatomy. Mouth: Moist mucous membranes. Chest: Decreased air entry bilaterally. No wheezing or rhonchi. Cardiovascular: Positive S1, positive S2. Regular rate and rhythm. Abdomen: Positive bowel sounds in all 4 quadrants. Soft, non-tender, non- distended. : Deferred. Rectal: Deferred. Skin: Warm, dry. Intact. Extremities: 2+ radial pulses bilaterally. No lower extremity edema. Neuro: Awake, alert, oriented x3. No gross motor or sensory deficits. Cranial nerves II through XII intact. Gait not assessed. laboratory and microbiology Laboratory Tests 07/26/24 15:20 07/25/24 06:20 07/24/24 05:26 Test 07/25/24 06:20 Range/Units Serum Glucose 187 H 74-106 mg/dL Assessment/Plan Impression: Acute hypoxic respiratory failure Dependence on supplemental oxygen Bacteremia Obesity Cough Anxiety Pulmonary embolism Events: Complete steroids course Complete antibiotic course Taper o2 down as tolerated Continue bronchodilators Antitussive PRN cough. Rest of plan as noted below. Plan: Supplemental oxygen 2 LPM NC Titrate to keep O2 sats above 92%. Taper O2 as tolerated. Continue bronchodilators. Continue antibiotics IV steroids Incentive spirometry Monitor renal function. Monitor electrolytes. Supplement as necessary. Monitor ins and outs. GI/DVT prophylaxis. Prognosis: Poor given patient's multiple co-morbidities. Rest of plan per hospitalist and other consultants. Thank you Dr. Velzo for allowing me to participate in this patient's care. Further recommendations will depend on the patient's clinical course. Please do not hesitate to contact me if you have any questions or concerns. This medical document was created using an electronic medical record system with [employer] system. Although these documentations are being carefully reviewed, there may still be some phonetic and typographical changes. The errors are purely typographical, due to imperfection on the software program, and do not reflect any compromise in the patient's medical care. Plan discussed with: Patient, Other (, RN) JAYNA HOYT MD Jul 26, 2024 23:22
--- NOTE | 2024-07-26 23:22 | DVHINCON2 ---
Date of service: Jul 25, [address] Tonny Veloz Reason for Consultation Acute hypoxic respiratory failure History of Present Illness A 49-year-old man with past medical history of anxiety, PE, and COVID-19 who presented to the ED on 07/21/24 with c/o cough, weakness, dizziness, and hemoptysis x2 days. Patient reports that he had the flu about a month ago and still has a lingering cough. He states that he went to the urgent care recently, was given oral antibiotics and steroids with no relief. Patient is unsure what allergies he has. He does have a cat and dog at home. Patient denies any chest pain, shortness of breath, abdominal pain, nausea, vomiting, diarrhea, fever, chills, and headache. Patient was admitted for further care and pulmonary consultation is requested for evaluation and management due to these findings. Review of Systems: 14-point review of systems negative unless otherwise noted above. Past Medical History: COVID-19, pulmonary embolus, anxiety Past Surgical History: None Medications: Reviewed. Allergies: Remdesivir Family History: Cancer, DM, Other (Brother with asthma, mom with diabetes, grandma with stomach cancer) Social History: Smoke: Nonsmoker Alcohol: none (Quit drinking) Drugs: Other (Quit marijuana). Family History: Asthma G8 BROTHER Bronchitis G8 MOTHER Diabetes mellitus G8 MOTHER FH: GI cancer GRANDMOTHER Allergies: Coded Allergies: Remdesivir (Verified Allergy, Mild, 07/21/24) rash Home Meds Active Scripts Doxycycline (Monohydrate) (Doxycycline) 100 Mg Cap, 100 MG PO BID for 8 Days, #16 CAP Prov:RAMANA GARZON INSURANCE VERIFY REP 07/27/24 Cefdinir (Cefdinir) 300 Mg Cap, 1 CAP PO BID for 8 Days, #16 CAP Prov:SALRAMANA WATSON INSURANCE VERIFY REP 07/27/24 Methylprednisolone (Medrol Dosepak) 4 Mg Valentin, 4 MG PO UD, #21 TAB UAD Prov:RAMANA GARZON INSURANCE VERIFY REP 07/27/24 Cholecalciferol (Vitamin D3 Super Strength) 2,000 Unit Cap, 2000 UNIT PO DAILY, #7 CAP Prov:HECTOR MELVIN MD 08/04/21 Albuterol Sulfate (VENTOLIN MDI) 90 Mcg Ih, 180 MCG IN TID PRN, #1 INH 1 Refill Prov:HECTOR MELVIN MD 08/04/21 Current Medications Current Medications Medications (Trade) Dose Ordered Sig/Deuce Route PRN Reason Start Time Stop Time Status Last Admin Guaifenesin/ Codeine Phosphate (Robitussin/ Codeine Liq) 5 ml Q4HPRN PRN GT FOR COUGH 07/26/24 15:00 Vital Signs Vital Signs Date Time Temp Pulse Resp B/P (MAP) Pulse Ox O2 Delivery O2 Flow Rate FiO2 07/26/24 22:17 97 18 98 07/26/24 22:11 Nasal Cannula* 2 28 07/26/24 21:00 97.9 112/68 (83) 97.9 Physical Exam Gen.: Patient lying in bed in no apparent distress. On supplemental oxygen. Head: Normocephalic, atraumatic. Eyes: EOMI/PERRLA. Ears: Normal hearing. Normal anatomy. Neck/trachea: Trachea midline, supple. Nose: Normal external anatomy. Mouth: Moist mucous membranes. Chest: Decreased air entry bilaterally. No wheezing or rhonchi. Cardiovascular: Positive S1, positive S2. Regular rate and rhythm. Abdomen: Positive bowel sounds in all 4 quadrants. Soft, non-tender, non- distended. : Deferred. Rectal: Deferred. Skin: Warm, dry. Intact. Extremities: 2+ radial pulses bilaterally. No lower extremity edema. Neuro: Awake, alert, oriented x3. No gross motor or sensory deficits. Cranial nerves II through XII intact. Gait not assessed. Labs/Diagnostic Data Labs Test 07/26/24 15:20 07/25/24 06:20 07/24/24 05:26 07/23/24 05:30 Range/Units Creatinine 1.27 0.700-1.30 mg/dL Glomerular Filtration Rate Calc 68 >90 mL/min Vancomycin Level Trough 20.8 H 5-10 ug/mL Sodium Level 137 136-145 mmol/L Potassium Level 4.3 3.5-5.1 mmol/L Chloride Level 104 98-107 mmol/L Carbon Dioxide Level 26 20-31 mmol/L Anion Gap 7 5-15 Blood Urea Nitrogen 17 9-23 mg/dL BUN/Creatinine Ratio 15.7 10.0-20.0 Serum Glucose 187 H 74-106 mg/dL Calcium Level 8.9 8.7-10.4 mg/dL White Blood Count 16.4 H 4.4-10.8 10^3/uL Red Blood Count 4.73 4.5-5.90 10^6/uL Hemoglobin 15.2 13.5-17.5 g/dL Hematocrit 45.2 41.0-53.0 % Mean Corpuscular Volume 95.4 80.0-100.0 fL Mean Corpuscular Hemoglobin 32.1 H 28.0-32.0 pg Mean Corpuscular Hemoglobin Concent 33.7 32.0-36.0 g/dL Red Cell Distribution Width 13.7 11.8-14.3 % Platelet Count 171 140-450 10^3/uL Mean Platelet Volume 10.1 6.9-10.8 fL Neutrophils (%) (Auto) 90.6 H 37.0-80.0 % Lymphocytes (%) (Auto) 2.9 L 10.0-50.0 % Monocytes (%) (Auto) 6.4 0.0-12.0 % Eosinophils (%) (Auto) 0.0 0.0-7.0 % Basophils (%) (Auto) 0.1 0.0-2.0 % Neutrophils # (Auto) 14.9 H 1.6-8.6 10 ^3/uL Lymphocytes # (Auto) 0.5 0.4-5.4 10 ^3/uL Monocytes # (Auto) 1.1 0-1.3 10 ^3/uL Eosinophils # (Auto) 0 0-0.8 10 ^3/uL Basophils # (Auto) 0 0-0.2 10 ^3/uL Nucleated Red Blood Cells 0.0 % Magnesium Level 2.3 1.6-2.6 mg/dL Total Bilirubin 0.6 0.2-1.0 mg/dL Aspartate Amino Transferase (AST) 30 13-40 U/L Alanine Aminotransferase (ALT) 35 7-40 U/L Alkaline Phosphatase 90 46-116 U/L Total Protein 7.0 5.7-8.2 g/dL Albumin 4.4 3.2-4.8 g/dL Hepatitis B Surface Antigen Negative Negative Hepatitis C Antibody Negative Negative Test 07/21/24 11:48 07/21/24 10:55 07/21/24 10:47 07/21/24 10:44 Range/Units Troponin I High Sensitivity 3 L </=54 ng/L Urine Color Light-yellow Yellow Urine Clarity Clear Clear Urine pH 6.0 5.0-9.0 Urine Specific [place] 1.010 1.001-1.035 Urine Protein Negative Negative Urine Ketones Negative Negative Urine Blood Negative Negative /uL Urine Nitrite Negative Negative Urine Bilirubin Negative Negative Urine Urobilinogen Normal Negative mg/dL Urine Leukocyte Esterase Negative Negative /uL Urine RBC <1 0 - 3 /hpf Urine Microscopic WBC 1 0-3 /HPF Urine Squamous Epithelial Cells None seen <5 /hpf Urine Bacteria None seen None Seen /hpf Urine Glucose Normal Normal mg/dL D-Dimer, Quantitative 0.44 0.0-0.49 mg/L FEU Lactic Acid Level 1.3 0.4-2.0 mmol/L B-Type Natriuretic Peptide 3.45 0-100 pg/mL Influenza Type A Antigen Negative Negative Influenza Type B Antigen Negative Negative SARS-CoV-2 Antigen (Rapid) Negative NEGATIVE Microbiology Date/Time Source Procedure Growth Status 07/25/24 14:10 Blood Blood Culture - Preliminary NO GROWTH AFTER 24 HOURS OF INCUBATION. Resulted 07/22/24 13:40 Nose MRSA Screen - Final Complete Assessment Impression: Acute hypoxic respiratory failure Dependence on supplemental oxygen Bacteremia Obesity Cough Anxiety Pulmonary embolism Plan: Supplemental oxygen 2 LPM NC Titrate to keep O2 sats above 92%. Taper O2 as tolerated. Continue bronchodilators. Continue antibiotics IV steroids Incentive spirometry Monitor renal function. Monitor electrolytes. Supplement as necessary. Monitor ins and outs. GI/DVT prophylaxis. Prognosis: Poor given patient's multiple co-morbidities. Rest of plan per hospitalist and other consultants. Thank you Dr. Veloz for allowing me to participate in this patient's care. Further recommendations will depend on the patient's clinical course. Please do not hesitate to contact me if you have any questions or concerns. This medical document was created using an electronic medical record system with [employer] dictation system. Although these documentations are being carefully reviewed, there may still be some phonetic and typographical changes. The errors are purely typographical, due to imperfection on the software program, and do not reflect any compromise in the patient's medical care. Plan discussed with: Patient, Other (RUDY Mcconnell/Dr. Veloz) JAYNA HOYT MD Jul 26, 2024 23:22
[2024-07-27] VITALS (12 sets, daily range): BP systolic 108–153; BP diastolic 67–102; PULSE 66–105; RESP 14–20; TEMP 97.7–98.4; O2SAT 93–100
[2024-07-27 07:15] LABS: Basophils # (auto) 0 10 ^3/uL (0-0.2); Eosinophils # (auto) 0 10 ^3/uL (0-0.8); Eosinophils % (auto) 0.1 % (0.0-7.0); Hematocrit 44.9 % (41.0-53.0); Hemoglobin 15.4 g/dL (13.5-17.5); Lymphocytes # (auto) 0.7 10 ^3/uL (0.4-5.4); Mean Corpuscular Hemoglobin 32.3 pg (28.0-32.0); Mean Corpuscular Hgb Conc. 34.3 g/dL (32.0-36.0); Monocytes # (auto) 0.7 10 ^3/uL (0-1.3); Monocytes % (auto) 6.1 % (0.0-12.0); Neutrophils % (auto) 87.8 % (37.0-80.0); Platelet Count (auto) 165 10^3/uL (140-450); Red Blood Cells 4.77 10^6/uL (4.5-5.90); Red Cell Distribution Width 13.3 % (11.8-14.3); White Blood Cell 11.4 10^3/uL (4.4-10.8)
--- NOTE | 2024-07-27 11:17 | DVH ---
CHEST RADIOGRAPH Indication: pna Technique: Single frontal view of the chest was obtained COMPARISON: XY CHEST PORTABLE on DOS: 07/21/24, CHEST PORTABLE on DOS: 08/01/21 FINDINGS: Lines and Tubes: None Lungs: Left lower lobe airspace disease. Pleura: No effusion. No pneumothorax. Cardiomediastinal contours: Unremarkable Bones: Unremarkable IMPRESSION: Left lower lobe airspace disease.
--- NOTE | 2024-07-27 11:32 | DVHPN2 ---
Subjective Patient continues to report having a cough. Denies having any fevers or chills. Reviewed: Care Plan Changes from previous H/P or p: No Changes General: Per HPI Eyes: No Pain, No Vision change, No Conjunctivae inflammation, No Eyelid inflammation, No Other, No Redness ENT: No Ear pain, No Ear discharge, No Nose pain, No Nose discharge, No Nose congestion, No Mouth pain, No Mouth swelling, No Throat pain, No Throat swelling, No Other Cardiovascular: No Chest Pain, No Palpitations, No Orthopnea, No Paroxysmal Noc. Dyspnea, No Edema, No Lt Headedness, No Other Respiratory: Cough; No Dry, No Shortness of breath, No SOB with excertion, No Wheezing; Hemoptysis; No Pleuritic Pain, No Sputum, No Other Gastrointestinal: No Nausea, No Vomiting, No Abdominal Pain, No Diarrhea, No Constipation, No Melena, No Hematochezia, No Other Genitourinary: No Dysuria, No Frequency, No Incontinence, No Hematuria, No Retention, No Other Musculoskeletal: No other, No neck pain, No shoulder pain, No arm pain, No back pain, No hand pain, No leg pain, No foot pain Skin: No Rash, No Lesions, No Jaundice, No Bruising, No Other Objective Vitals Vital Signs Date Time Temp Pulse Resp B/P (MAP) Pulse Ox O2 Delivery O2 Flow Rate FiO2 07/27/24 08:45 98.4 105 20 127/80 (96) 97 98.4 07/27/24 06:38 Nasal Cannula 2.0 07/27/24 06:38 28 Intake/Output Intake and Output 07/27/24 07:00 Intake Total 2250 ml Output Total 400 ml Balance 1850 ml Intake Oral 1700 ml IV Total 550 ml Output Urine Total 400 ml # Voids 4 General Appearance: Alert, Oriented X3, Cooperative, mild distress Lungs: Clear to auscultation, Normal air movement Cardiovascular: Regular rate, Normal S1, Normal S2 Abdomen: Normal bowel sounds, Soft, No tenderness Extremities: No edema Skin: Dry, Intact Psych/Mental Status: Mental status NL, Mood NL Medications Current Medications Medications Dose Ordered Sig/Deuce Route Start Time Stop Time Status Last Admin Dose Admin Albuterol 2.5 mg Q4HWA NEB 07/21/24 18:00 07/27/24 06:35 2.5 MG Albuterol 2.5 mg Q2HPRN PRN NEB 07/21/24 17:00 Ipratropium Gail 0.5 mg Q4HWA NEB 07/21/24 18:00 07/27/24 06:35 0.5 MG Ipratropium Gail 0.5 mg Q2HPRN PRN NEB 07/21/24 17:00 Famotidine 20 mg DAILY IV 07/22/24 10:00 07/27/24 09:23 20 MG Ceftriaxone Sodium 50 ml @ 100 mls/hr DAILY@09 IV 07/22/24 09:00 07/27/24 09:22 100 MLS/HR Azithromycin 250 ml @ 125 mls/hr DAILY IV 07/22/24 10:00 07/27/24 10:13 125 MLS/HR Acetaminophen/ Hydrocodone Bitart 1 tab Q4HP PRN PO 07/21/24 17:00 Ondansetron HCl 4 mg Q4HP PRN IV 07/21/24 17:00 Acetaminophen 650 mg Q6HP PRN PO 07/21/24 17:00 Diphenhydramine HCl 25 mg Q4HP PRN IV 07/21/24 17:15 Vancomycin HCl 0 ml @ 0 mls/hr UD IV 07/22/24 13:30 Guaifenesin/ Dextromethorphan 10 ml Q4HP PRN PO 07/22/24 13:45 Hold 07/26/24 22:31 10 ML Alprazolam 0.25 mg Q8HP PRN PO 07/23/24 13:00 07/26/24 22:31 0.25 MG Methylprednisolone Sodium Succinate 30 mg Q12HR IV 07/24/24 22:00 07/27/24 09:22 30 MG Guaifenesin/ Codeine Phosphate 5 ml Q4HPRN PRN GT 07/26/24 15:00 Vancomycin HCl 250 ml @ 250 mls/hr Q12H IV 07/27/24 11:00 Laboratory Results Laboratory Tests 07/25/24 06:20 07/27/24 06:25 Urinalysis Test 07/21/24 10:55 Urine Color Light-yellow (Yellow) Urine Clarity Clear (Clear) Urine pH 6.0 (5.0-9.0) Urine Specific [place] 1.010 (1.001-1.035) Urine Protein Negative (Negative) Urine Ketones Negative (Negative) Urine Blood Negative /uL (Negative) Urine Nitrite Negative (Negative) Urine Bilirubin Negative (Negative) Urine Urobilinogen Normal mg/dL (Negative) Urine Leukocyte Esterase Negative /uL (Negative) Urine RBC <1 /hpf (0 - 3) Urine Microscopic WBC 1 /HPF (0-3) Urine Squamous Epithelial Cells None seen /hpf (<5) Urine Bacteria None seen /hpf (None Seen) Urine Glucose Normal mg/dL (Normal) Microbiology Microbiology Date/Time Source Procedure Growth Status 07/25/24 14:10 Blood Blood Culture - Preliminary NO GROWTH AFTER 24 HOURS OF INCUBATION. Resulted 07/22/24 13:40 Nose MRSA Screen - Final Complete Labs and/or images reviewed: Labs reviewed by me, Image(s) reviewed by me Assessment/Plan Assessment/Plan Impression: -acute hypoxic respiratory failure -community-acquired pneumonia, probable Gram-positive/Gram-negative etiology -CT angiogram of the chest ruled out PE -obesity -anxiety Plan: -weaned off O2 supplementation -repeat chest x-ray reveals left lower lobe infiltrate -continue current antibiotic therapy -antitussives -positive blood culture with micrococcus species. Probable contamination -reassess for discharge planning Total time spent with patient discussing and formulating plan of care: 35 minutes. This medical document was created using an electronic medical record system with [employer] dictation system. Although this document has been carefully reviewed, there may still be some phonetic and typographical errors. These areas are purely typographical due to imperfections of the software programs, and do not reflect any compromise in the patient's medical care. Plan discussed with: Patient, Other (RN) My Orders Orders - RAMANA GARZON NP Procedure Category Date Status Time Chest Xray 1 View XY 07/27/24 Resulted 10:53 Date of Service: Jul 27, 2024 Billing Provider: RAMANA GARZON NP Common Visit Codes: [id number] INP/OBS CARE(HIGH) RAMANA GARZON NP Jul 27, 2024 11:32
[2024-07-27] MEDS: VANCOMYCIN 1GM/250ML KIT 250 ML IV SCH (13:21)
[2024-07-27] MEDS ORDERED: METH4PAK PO (13:49)
[2024-07-27] MEDS ORDERED: DOXY100C79 PO (13:50)
[2024-07-27] MEDS ORDERED: CEFD300C2 PO (13:50)
--- NOTE | 2024-07-27 13:54 | DVHDS2 ---
Discharge Summary Date of Admission Jul 21, 2024 at 16:57 Date of Discharge: Jul 27, 2024 Admitting Diagnosis Acute respiratory failure Labs/Diagnostic Data: Laboratory Results Test 07/27/24 06:25 07/26/24 15:20 07/25/24 06:20 07/23/24 05:30 White Blood Count 11.4 10^3/uL (4.4-10.8) Red Blood Count 4.77 10^6/uL (4.5-5.90) Hemoglobin 15.4 g/dL (13.5-17.5) Hematocrit 44.9 % (41.0-53.0) Mean Corpuscular Volume 94.0 fL (80.0-100.0) Mean Corpuscular Hemoglobin 32.3 pg (28.0-32.0) Mean Corpuscular Hemoglobin Concent 34.3 g/dL (32.0-36.0) Red Cell Distribution Width 13.3 % (11.8-14.3) Platelet Count 165 10^3/uL (140-450) Mean Platelet Volume 9.8 fL (6.9-10.8) Neutrophils (%) (Auto) 87.8 % (37.0-80.0) Lymphocytes (%) (Auto) 6.0 % (10.0-50.0) Monocytes (%) (Auto) 6.1 % (0.0-12.0) Eosinophils (%) (Auto) 0.1 % (0.0-7.0) Basophils (%) (Auto) 0.0 % (0.0-2.0) Neutrophils # (Auto) 10.0 10 ^3/uL (1.6-8.6) Lymphocytes # (Auto) 0.7 10 ^3/uL (0.4-5.4) Monocytes # (Auto) 0.7 10 ^3/uL (0-1.3) Eosinophils # (Auto) 0 10 ^3/uL (0-0.8) Basophils # (Auto) 0 10 ^3/uL (0-0.2) Nucleated Red Blood Cells 0.0 % Creatinine 1.06 mg/dL (0.700-1.30) Glomerular Filtration Rate Calc 85 mL/min (>90) Random Vancomycin Level 6.5 ug/mL (5-10) Vancomycin Level Trough 20.8 ug/mL (5-10) Sodium Level 137 mmol/L (136-145) Potassium Level 4.3 mmol/L (3.5-5.1) Chloride Level 104 mmol/L (98-107) Carbon Dioxide Level 26 mmol/L (20-31) Anion Gap 7 (5-15) Blood Urea Nitrogen 17 mg/dL (9-23) BUN/Creatinine Ratio 15.7 (10.0-20.0) Serum Glucose 187 mg/dL (74-106) Calcium Level 8.9 mg/dL (8.7-10.4) Magnesium Level 2.3 mg/dL (1.6-2.6) Total Bilirubin 0.6 mg/dL (0.2-1.0) Aspartate Amino Transferase (AST) 30 U/L (13-40) Alanine Aminotransferase (ALT) 35 U/L (7-40) Alkaline Phosphatase 90 U/L (46-116) Total Protein 7.0 g/dL (5.7-8.2) Albumin 4.4 g/dL (3.2-4.8) Hepatitis B Surface Antigen Negative (Negative) Hepatitis C Antibody Negative (Negative) Test 07/21/24 11:48 07/21/24 10:55 07/21/24 10:47 07/21/24 10:44 Troponin I High Sensitivity 3 ng/L (</=54) Urine Color Light-yellow (Yellow) Urine Clarity Clear (Clear) Urine pH 6.0 (5.0-9.0) Urine Specific [place] 1.010 (1.001-1.035) Urine Protein Negative (Negative) Urine Ketones Negative (Negative) Urine Blood Negative /uL (Negative) Urine Nitrite Negative (Negative) Urine Bilirubin Negative (Negative) Urine Urobilinogen Normal mg/dL (Negative) Urine Leukocyte Esterase Negative /uL (Negative) Urine RBC <1 /hpf (0 - 3) Urine Microscopic WBC 1 /HPF (0-3) Urine Squamous Epithelial Cells None seen /hpf (<5) Urine Bacteria None seen /hpf (None Seen) Urine Glucose Normal mg/dL (Normal) D-Dimer, Quantitative 0.44 mg/L FEU (0.0-0.49) Lactic Acid Level 1.3 mmol/L (0.4-2.0) B-Type Natriuretic Peptide 3.45 pg/mL (0-100) Influenza Type A Antigen Negative (Negative) Influenza Type B Antigen Negative (Negative) SARS-CoV-2 Antigen (Rapid) Negative (NEGATIVE) Other Laboratory Tests 07/27/24 06:25 07/25/24 06:20 Brief Hx & Hospital Course: History of Present Illness Kumar Breaux is a 49-year-old male with past medical history of anxiety, PE, and COVID who presents to the ED with cough, weakness, dizziness, and hemoptysis x2 days. Patient reports that he had the flu about a month ago and still has a lingering cough. He states that he went to the urgent care recently was given oral antibiotics and steroids with no relief. Patient is unsure what allergies he has. He does have a cat and dog at home. Patient denies any chest pain, shortness of breath, abdominal pain, nausea, vomiting, diarrhea, fever, chills, and headache. Course of hospitalization: Patient had CT angiogram of the chest which was negative for pulmonary embolism. Initial chest x-ray and CT reveals no cardiopulmonary disease. Repeat chest x- ray today, reveals some left lower lobe opacity. Patient states that he clinically feels better after being in the hospital for six days receiving IV antibiotics. Patient was white blood cell count is decreasing, with the patient being afebrile. He states that he was able to ambulate on room air without any dyspnea, but continues to have a cough. Patient will follow up with PCP in 1-2 weeks. He will be prescribed a Medrol Dosepak as well as doxycycline 100 mg p.o. b.i.d. as well as cefdinir 300 mg p.o. b.i.d. for additional eight days. Patient was agreeable with discharge plan. All questions answered. Physical examination General: Alert and Oriented x3. No acute distress. Well-nourished. Eyes: EOMI. Anicteric. HENT: Moist mucous membranes. Lungs: Clear to auscultation bilaterally. No accessory muscle use. Cardiovascular: Regular rate and rhythm. No murmur. No JVD. Abdomen: Soft, non-tender and non-distended. No palpable masses. Extremities: No edema. Non-tender. Skin: No rashes or lesions. Warm. Neurologic: No focal neurological deficits. CN II-XII grossly intact, but not individually tested. Psychiatric: Cooperative. Appropriate mood and affect. Total time spent with patient discussing and formulating plan of care: 35 minutes. This medical document was created using an electronic medical record system with [employer] dictation system. Although this document has been carefully reviewed, there may still be some phonetic and typographical errors. These areas are purely typographical due to imperfections of the software programs, and do not reflect any compromise in the patient's medical care. Consults/Reason for consult Pulmonology: Cough, shortness of breath Condition at Discharge: Fair Final Diagnosis/Problems List Acute hypoxic respiratory failure Secondary Diagnosis: -acute hypoxic respiratory failure -community-acquired pneumonia, probable Gram-positive/Gram-negative etiology -CT angiogram of the chest ruled out PE -obesity -anxiety Discharge Disposition: Home Discharge Instruct/Medications Diet: Regular Follow Up/Referral: PCP in 1-2 weeks Medications: Cefdinir 300 mg p.o. b.i.d. x8 days Doxycycline 100 mg p.o. b.i.d. x8 days Medrol Dosepak use as directed 36 Discharge Statement: "Patient was advised to return to the ER or call 911 if any headaches, dizziness, shortness of breath, chest pain, abdominal pain, bleeding, fevers, or worsening of medical condition. Patient was counseled about treatment plan, medications, possible side effects, patientverbalized understanding. All questions were answered to the best of my ability. This discharge took greater then 30 minutes in planning, reviewing documentation, counseling the patient, and discussing with other team members." ASSESSMENT ASSESSMENT Assessment Date of Service: Jul 27, 2024 Billing Provider: RAMANA GARZON NP Common Visit Codes: [id number] DISCH DAY >30min RAMANA GARZON NP Jul 27, 2024 13:54
--- NOTE | 2024-07-27 23:25 | DVHPN2 ---
Progress Note - Dictate Date Seen: Jul 27, 2024 Medical Necessity Reason Pt with a Central, PICC or Fol: No Subjective Patient seen and examined at bedside. On room air Overnight events reviewed. vital signs Vital Sign Date Time Temp Pulse Resp B/P (MAP) Pulse Ox O2 Delivery O2 Flow Rate FiO2 07/27/24 17:28 98.2 73 18 94 07/27/24 12:58 128/73 (91) 07/27/24 10:00 Room Air* 0 21 Total Intake and Output 07/26/24 07/26/24 07/27/24 15:00 23:00 07:00 Intake Total 550 ml 800 ml 900 ml Output Total 400 ml Balance 550 ml 800 ml 500 ml objective Gen.: Patient lying in bed in no apparent distress. On room air Head: Normocephalic, atraumatic. Eyes: EOMI/PERRLA. Ears: Normal hearing. Normal anatomy. Neck/trachea: Trachea midline, supple. Nose: Normal external anatomy. Mouth: Moist mucous membranes. Chest: Decreased air entry bilaterally. No wheezing or rhonchi. Cardiovascular: Positive S1, positive S2. Regular rate and rhythm. Abdomen: Positive bowel sounds in all 4 quadrants. Soft, non-tender, non- distended. : Deferred. Rectal: Deferred. Skin: Warm, dry. Intact. Extremities: 2+ radial pulses bilaterally. No lower extremity edema. Neuro: Awake, alert, oriented x3. No gross motor or sensory deficits. Cranial nerves II through XII intact. Gait not assessed. laboratory and microbiology Laboratory Tests 07/27/24 06:25 07/25/24 06:20 Test 07/25/24 06:20 Range/Units Serum Glucose 187 H 74-106 mg/dL Assessment/Plan Impression: Acute hypoxic respiratory failure Dependence on supplemental oxygen Bacteremia Obesity Cough Anxiety Pulmonary embolism Events: Breathing comfortably on room air. Supplemental oxygen PRN Improved O2 requirements CXR reviewed, demonstrates left lower lobe airspace opacities. Obtain repeat CXR to assess for interval changes. Complete steroid and antibiotic course Patient is stable for discharge from the pulmonary standpoint. Follow up in 2-3 weeks in Pulmonary Clinic. Labs and imaging reviewed Plan: Supplemental oxygen PRN Titrate to keep O2 sats above 92%. Continue bronchodilators. Continue antibiotics IV steroids Incentive spirometry Monitor renal function. Monitor electrolytes. Supplement as necessary. Monitor ins and outs. GI/DVT prophylaxis. Prognosis: Guarded given patient's multiple co-morbidities. Rest of plan per hospitalist and other consultants. Thank you Dr. Veloz for allowing me to participate in this patient's care. Further recommendations will depend on the patient's clinical course. Please do not hesitate to contact me if you have any questions or concerns. This medical document was created using an electronic medical record system with [employer] dictation system. Although these documentations are being carefully reviewed, there may still be some phonetic and typographical changes. The errors are purely typographical, due to imperfection on the software program, and do not reflect any compromise in the patient's medical care. Plan discussed with: Patient, Other (RUDY Escoto) JAYNA HOYT MD Jul 27, 2024 23:25
== END 2024-07-27 17:48 | disposition home or self-care (01) | DRG 133 ==
LOC: EDBD 10:18 → ER 10:18 → OVERFLOW 16:57 → CENTRAL 07-22 21:57
PROVIDERS: ADMIT Internal Medicine; ATTEND Nurse Practitioner Acute Care
DX: J96.01 Acute respiratory failure with hypoxia (principal); J15.69 Pneumonia due to other Gram-negative bacteria; R78.81 Bacteremia; Z99.81 Dependence on supplemental oxygen; Z20.822 Contact with and (suspected) exposure to COVID-19; J15.9 Unspecified bacterial pneumonia; E66.9 Obesity, unspecified; F41.9 Anxiety disorder, unspecified; Z68.29 Body mass index [BMI] 29.0-29.9, adult; Z83.3 Family history of diabetes mellitus; Z82.5 Family history of asthma and other chronic lower respiratory diseases; Z80.0 Family history of malignant neoplasm of digestive organs; Z86.16 Personal history of COVID-19; Z88.8 Allergy status to other drugs, medicaments and biological substances
CPT/HCPCS: 36415; 71045; 71275; 80048; 80053; 80202; 81001; 82565; 83605; 83735; 83880; 84484; 85025; 85379; 86803; 87040; 87081; 87340; 87426; 87804; 93005; 94640; 94644; 99291; G0378; J3490

== ENCOUNTER 2025-05-13 13:45 | Outpatient (CLI) | payer MEDICAID ==
[~2025-05-13 13:45] MED LIST changes: -APIX5TAB PO; -ASCO500T11 PO; +CEFD300C2 PO; -DEXA6TAB6 PO; +DOXY100C79 PO; +METH4PAK PO; -ZINC220C8 PO
--- NOTE | 2025-05-14 14:53 | DVHSR ---
APPROVED REPORT EXAM: Two-dimensional and M-mode echocardiogram with Doppler and color Doppler. DIMENSIONS LVDd 5.3 (3.8-5.7cm) LA (2D) 3.7 (1.9-4.0cm) Aortic Root 3.6 (2.0-3.7cm) LVDs 3.7 (2.5-4.0cm) LA (MM) (1.9-4.0cm) Aortic Cusp Exc 2.1 (1.5-2.0cm) EF (%) 55.0 (55-70%) Rt. Atrium 4.0 (1.9-4.0cm) Asc. Aorta cm IVSd 1.1 (0.7-1.1cm) RV (D) (1.8-2.4cm) PWd 0.9 (0.7-1.1cm) Mitral Valve Mitral Mitral Stenosis E wave 0.50m/s MV Mean GR. mmHg A wave 0.70m/s MV Peak GR. mmHg E/A ratio 0.7 2D MVA cm2 Aortic Valve Aortic Valve Aortic Stenosis V1 0.70m/s AO Mean GR. 3mmHg V2 1.00m/s AO Peak GR. 5mmHg LVOT Diameter 2.6 (1.8-2.4cm) Doppler MEJIA 3.71cm2 Pulmonic Valve V2 0.50m/s LEFT VENTRICLE The left ventricle is normal size. The left ventricle is normal in structure and function. The Ejection Fraction is within normal limits. RIGHT VENTRICLE The right ventricle is normal size. ATRIA The left atrial size is normal. The right atrium size is normal. The interatrial septum is intact with no evidence for an atrial septal defect. MITRAL VALVE The mitral valve is normal in structure. There is no mitral valve regurgitation noted. PULMONIC VALVE The pulmonic valve is not well visualized. TRICUSPID VALVE The tricuspid valve is grossly normal. AORTIC VALVE The aortic valve opens well. No aortic regurgitation is present. GREAT VESSELS The aortic root is normal size. PERICARDIAL EFFUSION There is no pericardial effusion. Conclusion EF >55%
== END 2025-05-13 17:00 | disposition home or self-care (01) ==
LOC: Rad HDHVI 13:45
PROVIDERS: ATTEND Internal Medicine Cardiovascular Disease
DX: I10 Essential (primary) hypertension (principal)
CPT/HCPCS: 93306

== ENCOUNTER 2025-05-19 13:34 | Outpatient (CLI) | payer MEDICAID ==
[~2025-05-19] VITALS: Ht 182.9 cm; Wt 107.5 kg
== END 2025-05-19 17:00 | disposition home or self-care (01) ==
LOC: Rad HDHVI 13:34
PROVIDERS: ATTEND Internal Medicine Cardiovascular Disease
DX: I49.1 Atrial premature depolarization (principal); I49.3 Ventricular premature depolarization; R00.0 Tachycardia, unspecified; R07.89 Other chest pain; R55 Syncope and collapse; I10 Essential (primary) hypertension; J96.01 Acute respiratory failure with hypoxia; Z13.6 Encounter for screening for cardiovascular disorders
CPT/HCPCS: 78452; 93017; A9500; 96374